=== PATIENT | female | born 1990 ===

== ENCOUNTER → 2018-01-30 | Outpatient (CLI) | END | disposition home or self-care (01) ==

== ENCOUNTER 2018-02-19 13:34 | Emergency (ER) | END 2018-02-19 16:07 | disposition home or self-care (01) ==

== ENCOUNTER 2018-03-12 11:49 | Outpatient (CLI) | END 2018-03-12 14:14 | disposition home or self-care (01) ==

== ENCOUNTER 2018-04-02 13:06 | Inpatient (IN) | END 2018-04-03 17:30 | disposition home or self-care (01) | DRG 831 ==

== ENCOUNTER 2018-05-31 13:41 | Inpatient (IN) | payer MEDICAID, OTHER ==
[~2018-05-31] VITALS: Ht 152.4 cm; Wt 78.7 kg
[~2018-05-31 13:41] MED LIST: FER325 PO; NIFE10CA PO; PROG100C5 VAG
[2018-05-31 13:47] VITALS: BP 135/82; PULSE 109; RESP 20; Ht 152.4 cm; Wt 78.7 kg
[2018-05-31] MEDS ORDERED: PREN1TAB13 PO (13:51)
[2018-05-31] MEDS ORDERED: ENOX40DI14 SC (13:52)
[2018-05-31] MEDS: TERBUTALINE 1 MG/ML INJ SC ONE ×2 (16:30→16:47)
[2018-05-31] MEDS: LACTATED RINGER'S 1,000 ML IV SCH (16:47)
[2018-05-31] MEDS ORDERED: LACTATED RINGER'S 1,000 ML IV SCH (18:28)
[2018-05-31] MEDS ORDERED: MAGNESIUM SULFATE 4 GM/100 ML 100 ML IV ONE (18:30)
[2018-05-31] MEDS: MAGNESIUM SULFATE 20 GM/500 ML 500 ML IV SCH (20:44)
[2018-05-31] MEDS: BETAMET NA PHOS/AC(6 MG/ML) 2 ML INJ SYG IM SCH (20:51)
[2018-05-31] MEDS: ENOXAPARIN 40 MG/0.4 ML SYG SC SCH (21:03)
[2018-05-31] MEDS ORDERED: ACETAMINOPHEN 325 MG TAB PO PRN (21:30)
[2018-05-31] MEDS: PROGESTERONE 100 MG CAP VAG SCH (21:53)
[2018-06-01] MEDS: MAGNESIUM SULFATE 20 GM/500 ML 500 ML IV SCH ×2 (06:56→17:12)
[2018-06-01] MEDS: LACTATED RINGER'S 1,000 ML IV SCH ×2 (08:30→10:47)
[2018-06-01] MEDS: DOCUSATE SODIUM 100 MG CAP PO SCH (09:00)
[2018-06-01] MEDS: PRENATAL VITAMIN PO SCH (09:14)
[2018-06-01] MEDS: FERROUS SULFATE (EC) 325 MG TAB PO SCH (09:14)
--- NOTE | 2018-06-01 09:49 | NSTRPT ---
NST Information Datetime Report Generated by CPN: 06/01/2018 09:48 Datetime: 05/31/2018 11:40 Test Number: 2 Reason for NST: Other Reason for NST Other: Antiphospholipid Syndrome, short Cervix Test Evaluation Patient States Movement: Present Comments: FROM JAZZY. No NST done.Cervical length 0.7cm. EFW: 1885gms. 31%, AC:31%, RYAN 12.9CM. cephalic. Recommendation is for patient to go to Hospital. spoke to Dr. Antony and his orders are to send p atient to Ob-Triage. explained to patient plan of care. Patient states understanding. Report given to Teagan GARZON. Electronically Signed By E-Signature: with User ID: [id number] Datetime: 05/28/2018 10:56 NST Information EGA: 32.1 NST Duration (Min): 27
--- NOTE | 2018-06-01 16:28 | HP ---
Date/Time of Note Date/Time of Note late entry DATE: 06/01/18 TIME: 16:22 OB - History Hx of Present Free Text/Dictation 29-year-old female 2 para 0 AB 1 at 32+ weeks gestation admitted through antepartum testing unit for very short cervix of 0.7 cm Patient has history of a butterfly rash with positive TIO and positive anti- phospholipid syndrome Currently on Lovenox Last Menstrual Period: Oct 15, 2017 Estimated Due Date: Jul 22, 2018 : 2 Para: 0 Therapeutic : 1 Care: Good Care Ultrasounds: Normal mid trimester US Obstetrical Complications: Other (Short cervix, antiphospholipid syndrome) Medical Complications: Other (Possible lupus) Past Family/Social History * Past Medical, Surgical, Family and Obstetric Histories reviewed from chart. Blood Type: O+ Rubella: immune RPR/VDRL: Negative GBS Status: Unknown HBsAG: Negative OB Admission Exam Vital Signs Vital Signs Vital Signs Date Temp Pulse Resp B/P (MAP) Pulse Ox O2 O2 Flow FiO2 Time Delivery Rate 05/31/18 98.0 109 20 135/82 Room Air 13:47 (99) Physical Exam HEENT: WNL Heart: Rhythm Normal Lungs: Clear, Equal Abdomen: WNL Extremities: Normal Reflexes: Normal Cervical Dilatation: None Effacement: 75% Station: -3 Membranes: Intact Heart Rate: 140's Accelerations: Accelerations Present Decelerations: No Decelerations Contractions on Admission: >10 Minutes Apart Date/Time Contractions Began: ? Frequency of Contractions: ? Duration: ? Last 72 hours Lab Results CBC & BMP 05/31/18 16:30 Liver Function Test 05/31/18 16:30 Alanine Aminotransferase (ALT/SGPT) 21 Albumin 4.0 Alkaline Phosphatase 156 H Aspartate Amino Transf (AST/SGOT) 35 Direct Bilirubin 0.00 Total Protein 8.3 H Magnesium Level Test 06/01/18 00:28 06/01/18 06:58 06/01/18 11:54 Magnesium Level 4.6 H 5.1 *H 5.4 *H OB Assessment/Plan Other Assessment: 32 weeks gestation Short cervix Antiphospholipid syndrome Other plan: Patient was admitted for tocolysis of uterine contractions Continue Lovenox Provide steroid TIERA BUSTILLO MD Jun 01, 2018 16:28
--- NOTE | 2018-06-01 16:29 | PN ---
Date/Time of Note Date/Time of Note DATE: 06/01/18 TIME: 16:28 OB Subjective Subjective Subjective No major complaint of uterine contractions Has uterine tightenings sporadically OB Objective Objective Objective Vital signs stable as well as general physical exam heart tones appeared reactive Electronic monitoring occasional uterine contractions seen OB Assessment/Plan Reason for admission: labor Other Assessment: 32+ weeks gestation Short cervix Other plan: Continue magnesium sulfate for 24 more hours and change to p.o. nifedipine following day TIERA BUSTILLO MD Jun 01, 2018 16:29
[2018-06-01] MEDS ORDERED: SALINE 0.65% 45 ML NAS SPRAY NASAL PRN ×2 (19:00→22:00)
[2018-06-01] MEDS: BETAMET NA PHOS/AC(6 MG/ML) 2 ML INJ SYG IM SCH (21:05)
[2018-06-01] MEDS: PROGESTERONE 100 MG CAP VAG SCH (21:12)
[2018-06-01] MEDS: ENOXAPARIN 40 MG/0.4 ML SYG SC SCH (21:34)
[2018-06-02] MEDS: LACTATED RINGER'S 1,000 ML IV SCH ×2 (00:43→13:56)
[2018-06-02] MEDS: MAGNESIUM SULFATE 20 GM/500 ML 500 ML IV SCH ×2 (04:06→13:58)
[2018-06-02] MEDS: DOCUSATE SODIUM 100 MG CAP PO SCH (09:00)
[2018-06-02] MEDS: PRENATAL VITAMIN PO SCH (09:54)
[2018-06-02] MEDS: FERROUS SULFATE (EC) 325 MG TAB PO SCH (09:55)
--- NOTE | 2018-06-02 16:17 | DS ---
Date/Time of Note Date/Time of Note DATE: 06/02/18 TIME: 16:12 Obstetrical Discharge Record Final Diagnosis Final Diagnosis: not delivered Other Final Diagnosis Short cervix and contractions Complications Tocolytics: Magnesium Sulfate, Other Condition on Discharge Physical Assessment Voiding: Yes Bowel Movement: Yes Breast: Soft, non-tender, Filling Fundus: Other () Abdomen and Incision: Abdomen is gravid fundal height is 32 heart tones are reactive Episiotomy: Not applicable Calf Tenderness: No Patient Condition: Good (Home on bed and pelvic rest) TIERA BUSTILLO MD Jun 02, 2018 16:17
--- NOTE | 2018-06-02 16:21 | DS ---
Date/Time of Note Date/Time of Note DATE: 06/02/18 TIME: 16:18 Discharge Summary Admission/Discharge Info Admit Date/Time May 31, 2018 at 18:00 Discharge Date/Time May 02, 2019 Discharge Diagnosis Short cervix contractions Antiphospholipid syndrome Patient Condition: Good Hx of Present Illness 28-year-old female at 30-33 weeks admitted with short cervix and contractions Tocolysis of contractions using magnesium sulfate Status stable on p.o. nifedipine Hospital Course Patient was tolerating the tocolytics medication well Discharged home on bed and pelvic rest until delivery Follow-up with antepartum testing twice a week Home Meds Active Scripts Nifedipine* (Procardia*) 10 Mg Capsule, 20 MG PO Q6, #120 CAP 2 Refills Prov:TIERA BUSTILLO MD 04/03/18 Progesterone,Micronized* (Progesterone*) 100 Mg Capsule, 200 MG VAG HS, #120 CAP 0 Refills Prov:TIERA BUSTILLO MD 04/03/18 Ferrous Sulfate* (Ferrous Sulfate*) 325 Mg Tabec, 325 MG PO DAILY, #120 TAB 0 Refills Prov:TIERA BUSTILLO MD 04/03/18 Reported Medications Enoxaparin Sodium* (Lovenox*) 40 Mg/0.4 Ml Syringe, 40 MG SC DAILY, SYR 05/31/18 Pnv95/Ferrous Fumarate/FA ( Vitamins Tablet) 1 Each Tablet, 1 EACH PO DAILY, TAB 05/31/18 Follow-up Plan 3 4 days in clinic Primary Care Provider Corine Angela Time spent on discharge: > 30 minutes Pending Labs Laboratory Tests Test 06/01/18 19:09 06/02/18 00:20 06/02/18 06:07 06/02/18 06:24 Magnesium 5.4 5.4 5.6 Level mg/dl (1.7-2.5) mg/dl (1.7-2.5 mg/dl (1.7-2.5 ) ) Lab Scanned REFERENCE Report LAB [id number] TIERA BUSTILLO MD Jun 02, 2018 16:21
--- NOTE | 2018-06-02 16:29 | PD.PPDC ---
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 Provider Information Physician Information 28-year-old female admitted for short cervix and contractions and had tocolysis of contractions Condition [id number] Patient Condition: [id number] Good Diet [id number] Diet: Ilvlu0a Resume Regular Diet Activity/Restrictions [id number] Activity: Eryql0a May Shower Yevmy1Tc Restrictions: Ndyjq2c No Exercising No Lifting Nothing in the Vagina No [place] [id number] Return to Work or School: Hang September 16, 2018 Follow-up Follow-up with Physician: 3, 4, Day/Days (In clinic) Return to clinic for Comment: Pelvic rest and bedrest until delivery TIERA BUSTILLO MD Jun 02, 2018 16:29
[2018-06-02] MEDS ORDERED: NIFEdipine PO ×2 (16:30→16:45)
[2018-06-02] MEDS ORDERED: NIFEdipine 10 MG CAP PO SCH (18:00)
--- NOTE | 2018-06-06 19:56 | RADRPT ---
Vent Rate: 97 bpm RR Interval: 0 msec OH Interval: 146 msec QRS Duration: 72 msec QT Interval: 352 msec QTC Interval: 447 msec P-R-T Dike: 63 - 61 - 32 degrees Normal sinus rhythm Normal ECG Electronically Signed By: Leobardo Sher [id number]
--- NOTE | 2018-06-21 16:17 | HP ---
Date/Time of Note Date/Time of Note DATE: 06/21/18 TIME: 16:13 OB - History Hx of Present Free Text/Dictation 28-year-old female 2 para 0 AB 1 at 35+ weeks gestation sent in from antepartum testing unit of [facility] because of elevated blood pressure of 150/96 Chief Complaint: Patient is denying headache blurred vision or epigastric pain Last Menstrual Period: Oct 15, 2017 Estimated Due Date: Jul 22, 2018 : 2 Para: 0 Spontaneous : 1 Care: Good Care Ultrasounds: Normal mid trimester US Obstetrical Complications: Other (Patient with a butterfly facial skin rash positive TIO positive anti-phospholipid syndrome, labor and shortness of) Medical Complications: Other (Positive TIO and butterfly facial skin rash, positive antiphospholipid syndrome, short cervix) Past Family/Social History * Past Medical, Surgical, Family and Obstetric Histories reviewed from chart. Blood Type: O+ Rubella: immune RPR/VDRL: Negative GBS Status: Unknown HBsAG: Negative OB Admission Exam Physical Exam HEENT: WNL Heart: Rhythm Normal Lungs: Clear, Equal Abdomen: WNL Extremities: Normal Reflexes: Normal Cervical Dilatation: None Effacement: 0% Station: -3 Amniotic Fluid: Clear Heart Rate: 140's Accelerations: Accelerations Present Decelerations: No Decelerations Varibility: Marked Contractions on Admission: None OB Assessment/Plan Other Assessment: Possible -induced hypertension at 35+ week Other plan: Patient was admitted for 24-hour observation urine collection for protein and creatinine clearance Steroids will be provided TIERA BUSTILLO MD Jun 21, 2018 16:17
== END 2018-06-02 19:50 | disposition home or self-care (01) | DRG 831 ==
LOC: OBT 13:41 → L-D 13:41 → OBT 18:00 → L-D 18:00
PROVIDERS: ADMIT Obstetrics & Gynecology; ATTEND Obstetrics & Gynecology
DX: O26.873 Cervical shortening, third trimester (principal); O60.03 Preterm labor without delivery, third trimester; O99.113 Other diseases of the blood and blood-forming organs and certain disorders involving the immune mechanism complicating pregnancy, third trimester; D68.61 Antiphospholipid syndrome; Z3A.32 32 weeks gestation of pregnancy
CPT/HCPCS: 36415; 76817; 76818; 80053; 81001; 83735; 84439; 84443; 85025; 85302; 85305; 85610; 85730; 86592; 86850; 86900; 86901; 93005; 96360; 96361; G0463; J0702; J1650; J3105; J3475; J7120

== ENCOUNTER 2018-06-21 12:37 | Inpatient (IN) | payer OTHER ==
[~2018-06-21] VITALS: Ht 152.4 cm; Wt 80.8 kg
[~2018-06-21 12:37] MED LIST changes: +ENOX40DI14 SC; -NIFE10CA PO; +NIFEdipine PO; +PREN1TAB13 PO
[2018-06-21 14:56] VITALS: Ht 152.4 cm; Wt 80.8 kg
[2018-06-21 14:58] VITALS: BP 136/87; PULSE 109; RESP 20
--- NOTE | 2018-06-21 15:09 | TRIAGE ---
OB Triage Datetime Report Generated by CPN: 06/21/2018 15:08 Datetime: 06/21/2018 13:09 Stage of : Antepartum Datetime: 06/21/2018 11:31 Time of Arrival: 06/21/2018 12:33 EGA: 35.4 Arrived By: Ambulatory Arrived From: Other Unit in Hospital Chief Complaint: INCREASED BLOOD PRESSURES Movement: Present Contractions: Denies/Absent Rupture of Membranes: Denies Vaginal Bleeding: None Vaginal Discharge: Denies Recent Sexual Intercouse: Denies Abdominal Trauma: Not Applicable Patient Complaints: Other Time Provider Notified: 06/21/2018 13:00 Provider Notified: DELANO Initial Plan: NST, BPP, CFM, PIH PANEL, Datetime: 06/02/2018 17:20 Labor Evaluation Frequency: 0 Monitor Mode: External Resting Tone Accident: Relaxed Heart Rate FHR Baseline Rate: 130 Monitor Mode: External US FHR Baseline Changes: No Baseline Change Variability: Moderate 6-25 bpm Accelerations: 15X15 Decelerations: None Category: Category I Datetime: 06/02/2018 16:52 Labor Evaluation Frequency: 0 Monitor Mode: External Resting Tone Accident: Relaxed Heart Rate FHR Baseline Rate: 135 Monitor Mode: External US FHR Baseline Changes: No Baseline Change Variability: Moderate 6-25 bpm Accelerations: 15X15 Decelerations: None Category: Category I Datetime: 06/02/2018 15:14 Labor Evaluation Frequency: 0 Monitor Mode: External Resting Tone Accident: Relaxed Heart Rate FHR Baseline Rate: 130 Monitor Mode: External US FHR Baseline Changes: No Baseline Change Variability: Moderate 6-25 bpm Accelerations: 15X15 Decelerations: None Category: Category I Pain Presence: None/Denies Datetime: 06/02/2018 13:36 Maternal Assessment Level of Consciousness: Fully Conscious DTR's/Clonus: DTRs 2+ Headache: Denies Blurred Vision: No Respiratory Effort: Unlabored Breath Sounds, Left: Clear and Equal Breath Sounds, Right: Clear and Equal Nausea/Vomiting: Present RUQ Epigastric Pain: Denies Labor Evaluation Frequency: 0 Monitor Mode: External Resting Tone Accident: Relaxed Heart Rate FHR Baseline Rate: 130 Monitor Mode: External US FHR Baseline Changes: No Baseline Change Variability: Moderate 6-25 bpm Accelerations: 15X15 Decelerations: None Category: Category I Datetime: 06/02/2018 13:06 Heart Rate FHR Baseline Rate: 140 Datetime: 06/02/2018 12:49 Comments: maternal pulsle, loc Datetime: 06/02/2018 09:55 Labor Evaluation Frequency: 0 Monitor Mode: External Resting Tone Accident: Relaxed Heart Rate FHR Baseline Rate: 130 Monitor Mode: External US FHR Baseline Changes: No Baseline Change Variability: Moderate 6-25 bpm Accelerations: 15X15 Decelerations: None Category: Category I Datetime: 06/02/2018 07:28 Assessment Type: Ongoing Assessment Maternal Assessment Level of Consciousness: Fully Conscious DTR's/Clonus: DTRs 2+; No Clonus Headache: Denies Blurred Vision: No Respiratory Effort: Unlabored; Regular Rhythm; Equal Expansion Breath Sounds, Left: Clear and Equal Breath Sounds, Right: Clear and Equal Nausea/Vomiting: Denies RUQ Epigastric Pain: Denies Facial Edema: None Fall Risk Assessment History of Falling: (0) No Secondary Diagnosis: (0) No Ambulatory Aid: (0) Bedrest/Nurse Assist IV Therapy: (20) Yes Gait: (0) Normal/Bedrest/Immobile Mental Status: (0) Oriented to Own Ability Fall Score: 20 Fall Risk Score Definition: No Risk: No action required Datetime: 06/02/2018 07:27 Maternal Assessment Level of Consciousness: Fully Conscious DTR's/Clonus: DTRs 2+ Headache: Denies Blurred Vision: No RUQ Epigastric Pain: Denies Facial Edema: None Datetime: 06/02/2018 07:15 Labor Evaluation Frequency: 0 Monitor Mode: External Resting Tone Accident: Relaxed Heart Rate FHR Baseline Rate: 130 Monitor Mode: External US FHR Baseline Changes: No Baseline Change Variability: Moderate 6-25 bpm Accelerations: 15X15 Decelerations: None Category: Category I Pain Presence: None/Denies Datetime: 06/02/2018 07:00 Maternal Assessment Level of Consciousness: Fully Conscious Labor Evaluation Frequency: NONE Monitor Mode: External Quality: Mild Pattern: Normal: <= 5 Contractions in 10 Minutes Resting Tone Accident: Relaxed Heart Rate FHR Baseline Rate: 130 Monitor Mode: External US FHR Baseline Changes: No Baseline Change Variability: Moderate 6-25 bpm Accelerations: 10X10 Decelerations: None Category: Category I Datetime: 06/02/2018 06:01 Labor Evaluation Frequency: 1/HR Monitor Mode: External Duration (sec)2399: 100 Quality: Mild Pattern: Normal: <= 5 Contractions in 10 Minutes Resting Tone Accident: Relaxed Heart Rate FHR Baseline Rate: 125 Monitor Mode: External US FHR Baseline Changes: No Baseline Change Variability: Moderate 6-25 bpm Accelerations: 15X15 Decelerations: None Category: Category I Datetime: 06/02/2018 05:16 Labor Evaluation Frequency: 1/HR WITH IRRIT Monitor Mode: External Duration (sec)2399: 120 Quality: Mild Pattern: Normal: <= 5 Contractions in 10 Minutes Resting Tone Accident: Relaxed Heart Rate FHR Baseline Rate: 135 Monitor Mode: External US FHR Baseline Changes: No Baseline Change Variability: Moderate 6-25 bpm Accelerations: 15X15 Decelerations: None Category: Category I Datetime: 06/02/2018 04:01 DTR's/Clonus: DTRs 2+ Respiratory Effort: Unlabored Breath Sounds, Left: Clear and Equal Breath Sounds, Right: Clear and Equal Labor Evaluation Frequency: 2/HR Monitor Mode: External Duration (sec)2399: 80-100 Quality: Mild Pattern: Normal: <= 5 Contractions in 10 Minutes Resting Tone Accident: Relaxed Heart Rate FHR Baseline Rate: 120 Monitor Mode: External US FHR Baseline Changes: No Baseline Change Variability: Moderate 6-25 bpm Accelerations: 15X15 Decelerations: None Category: Category I Datetime: 06/02/2018 03:10 Labor Evaluation Frequency: NONE Monitor Mode: External Pattern: Normal: <= 5 Contractions in 10 Minutes Resting Tone Accident: Relaxed Heart Rate FHR Baseline Rate: 130 Monitor Mode: External US FHR Baseline Changes: No Baseline Change Variability: Moderate 6-25 bpm Accelerations: 15X15 Decelerations: None Category: Category I Datetime: 06/02/2018 03:00 Pain Presence: None/Denies Datetime: 06/02/2018 02:01 DTR's/Clonus: DTRs 2+ Labor Evaluation Frequency: 1/HR Monitor Mode: External Duration (sec)2399: 90 Quality: Mild Pattern: Normal: <= 5 Contractions in 10 Minutes Resting Tone Accident: Relaxed Heart Rate FHR Baseline Rate: 130 Monitor Mode: External US FHR Baseline Changes: No Baseline Change Variability: Moderate 6-25 bpm Accelerations: 15X15 Decelerations: None Category: Category I Datetime: 06/02/2018 00:59 Labor Evaluation Frequency: NONE Monitor Mode: External Pattern: Normal: <= 5 Contractions in 10 Minutes Resting Tone Accident: Relaxed Heart Rate FHR Baseline Rate: 135 Monitor Mode: External US FHR Baseline Changes: No Baseline Change Variability: Moderate 6-25 bpm Accelerations: 15X15 Decelerations: None Category: Category I Datetime: 06/02/2018 00:01 Maternal Assessment Level of Consciousness: Fully Conscious DTR's/Clonus: DTRs 2+ Respiratory Effort: Unlabored Breath Sounds, Left: Clear and Equal Breath Sounds, Right: Clear and Equal Labor Evaluation Frequency: 1/HR Monitor Mode: External Duration (sec)2399: 50 Quality: Mild Pattern: Normal: <= 5 Contractions in 10 Minutes Resting Tone Accident: Relaxed Heart Rate FHR Baseline Rate: 130 Monitor Mode: External US FHR Baseline Changes: No Baseline Change Variability: Moderate 6-25 bpm Accelerations: 15X15 Decelerations: None Category: Category I Pain Presence: None/Denies Datetime: 06/01/2018 23:00 Labor Evaluation Frequency: NONE Monitor Mode: External Pattern: Normal: <= 5 Contractions in 10 Minutes Resting Tone Accident: Relaxed Heart Rate FHR Baseline Rate: 125 Monitor Mode: External US FHR Baseline Changes: No Baseline Change Variability: Moderate 6-25 bpm Accelerations: 15X15 Decelerations: None Category: Category I Comments: FHR TRACING INTERMITTENTLY WHILE PT SLEEPING IN LEFT LATERAL. Datetime: 06/01/2018 22:00 Assessment Type: Ongoing Assessment Maternal Assessment Level of Consciousness: Fully Conscious DTR's/Clonus: DTRs 2+; No Clonus DTR's/Clonus: DTRs 2+ Headache: Denies Blurred Vision: No Respiratory Effort: Unlabored; Regular Rhythm; Equal Expansion Breath Sounds, Left: Clear and Equal Breath Sounds, Right: Clear and Equal Nausea/Vomiting: Denies RUQ Epigastric Pain: Denies Lower Extremities Edema: None Degree: None Upper Extremities Edema: None Degree: None Facial Edema: None Fall Risk Assessment History of Falling: (0) No Secondary Diagnosis: (0) No Ambulatory Aid: (0) Bedrest/Nurse Assist IV Therapy: (20) Yes Gait: (0) Normal/Bedrest/Immobile Mental Status: (0) Oriented to Own Ability Fall Score: 20 Fall Risk Score Definition: No Risk: No action required Labor Evaluation Frequency: 1/HR Monitor Mode: External Duration (sec)2399: 120 Quality: Mild Pattern: Normal: <= 5 Contractions in 10 Minutes Resting Tone Accident: Relaxed Heart Rate FHR Baseline Rate: 135 Monitor Mode: External US FHR Baseline Changes: No Baseline Change Variability: Moderate 6-25 bpm Accelerations: 15X15 Decelerations: None Category: Category I Pain Presence: None/Denies Datetime: 06/01/2018 20:59 Labor Evaluation Frequency: NONE Monitor Mode: External Pattern: Normal: <= 5 Contractions in 10 Minutes Resting Tone Accident: Relaxed Heart Rate FHR Baseline Rate: 130 Monitor Mode: External US FHR Baseline Changes: No Baseline Change Variability: Moderate 6-25 bpm Accelerations: 15X15 Decelerations: None Category: Category I Datetime: 06/01/2018 20:06 Labor Evaluation Frequency: 1/HR Monitor Mode: External Duration (sec)2399: 110 Quality: Mild Pattern: Normal: <= 5 Contractions in 10 Minutes Resting Tone Accident: Relaxed Heart Rate FHR Baseline Rate: 135 Monitor Mode: External US FHR Baseline Changes: No Baseline Change Variability: Moderate 6-25 bpm Accelerations: 15X15 Decelerations: None Category: Category I Vaginal Exam Membrane Status: Intact Datetime: 06/01/2018 20:00 Maternal Assessment Level of Consciousness: Fully Conscious DTR's/Clonus: DTRs 2+ Headache: Denies Blurred Vision: No Respiratory Effort: Unlabored Breath Sounds, Left: Clear and Equal Breath Sounds, Right: Clear and Equal Nausea/Vomiting: Denies RUQ Epigastric Pain: Denies Facial Edema: None Pain Presence: None/Denies Datetime: 06/01/2018 19:00 Monitor Mode: External Resting Tone Accident: Relaxed Heart Rate FHR Baseline Rate: 135 Monitor Mode: External US FHR Baseline Changes: No Baseline Change Variability: Moderate 6-25 bpm Accelerations: 15X15 Decelerations: None Category: Category I Pain Presence: None/Denies Datetime: 06/01/2018 18:52 Comments: FHR US difficult to monitor due to maternal movement Datetime: 06/01/2018 18:00 DTR's/Clonus: DTRs 2+ Monitor Mode: External Resting Tone Accident: Relaxed Heart Rate FHR Baseline Rate: 140 Monitor Mode: External US FHR Baseline Changes: No Baseline Change Variability: Moderate 6-25 bpm Accelerations: 15X15 Decelerations: None Category: Category I Pain Presence: None/Denies Datetime: 06/01/2018 17:00 DTR's/Clonus: DTRs 2+ Breath Sounds, Left: Clear and Equal Breath Sounds, Right: Clear and Equal Monitor Mode: External Resting Tone Accident: Relaxed Heart Rate FHR Baseline Rate: 135 Monitor Mode: External US FHR Baseline Changes: No Baseline Change Variability: Moderate 6-25 bpm Accelerations: 15X15 Decelerations: None Category: Category I Pain Presence: None/Denies Datetime: 06/01/2018 16:00 DTR's/Clonus: DTRs 2+ Breath Sounds, Left: Clear and Equal Breath Sounds, Right: Clear and Equal Temperature Route: Oral Monitor Mode: External Resting Tone Accident: Relaxed Heart Rate FHR Baseline Rate: 135 Monitor Mode: External US FHR Baseline Changes: No Baseline Change Variability: Moderate 6-25 bpm Accelerations: 15X15 Decelerations: None Category: Category I Pain Presence: None/Denies Datetime: 06/01/2018 15:00 Monitor Mode: External Resting Tone Accident: Relaxed Heart Rate FHR Baseline Rate: 135 Monitor Mode: External US FHR Baseline Changes: No Baseline Change Variability: Moderate 6-25 bpm Accelerations: 15X15 Decelerations: None Category: Category I Pain Presence: None/Denies Datetime: 06/01/2018 14:00 DTR's/Clonus: DTRs 2+ Monitor Mode: External Resting Tone Accident: Relaxed Heart Rate FHR Baseline Rate: 130 Monitor Mode: External US FHR Baseline Changes: No Baseline Change Variability: Moderate 6-25 bpm Accelerations: 15X15 Decelerations: None Category: Category I Pain Presence: None/Denies Datetime: 06/01/2018 13:00 Labor Evaluation Frequency: x1 UC noted this hour Monitor Mode: External Duration (sec)2399: 60 Quality: Mild Pattern: Normal: <= 5 Contractions in 10 Minutes Resting Tone Accident: Relaxed Heart Rate FHR Baseline Rate: 130 Monitor Mode: External US FHR Baseline Changes: No Baseline Change Variability: Minimal - Undetectable to <=5 bpm Accelerations: 15X15 Decelerations: None Comments: Appropriate for [place] Pain Presence: None/Denies Datetime: 06/01/2018 12:00 DTR's/Clonus: DTRs 2+ Breath Sounds, Left: Clear and Equal Breath Sounds, Right: Clear and Equal Labor Evaluation Frequency: x2 UC noted this hour Monitor Mode: External Quality: Mild Pattern: Normal: <= 5 Contractions in 10 Minutes Resting Tone Accident: Relaxed Heart Rate FHR Baseline Rate: 135 Monitor Mode: External US FHR Baseline Changes: No Baseline Change Variability: Moderate 6-25 bpm Accelerations: 15X15 Decelerations: None Category: Category I Pain Presence: None/Denies Datetime: 06/01/2018 11:00 Labor Evaluation Frequency: x2 UC noted this hour Monitor Mode: External Quality: Mild Pattern: Normal: <= 5 Contractions in 10 Minutes Resting Tone Accident: Relaxed Monitor Mode: External US FHR Baseline Changes: No Baseline Change Variability: Minimal - Undetectable to <=5 bpm Accelerations: 15X15 Decelerations: None Category: Category I Comments: Appropriate for [place] Pain Presence: None/Denies Datetime: 06/01/2018 10:00 DTR's/Clonus: DTRs 2+ Labor Evaluation Frequency: x2 UC noted this hour Monitor Mode: External Duration (sec)2399: 50 Quality: Mild Pattern: Normal: <= 5 Contractions in 10 Minutes Resting Tone Accident: Relaxed Contraction Comments: Uterine irritability noted Heart Rate FHR Baseline Rate: 125 Monitor Mode: External US FHR Baseline Changes: No Baseline Change Variability: Moderate 6-25 bpm Accelerations: 15X15 Decelerations: None Category: Category I Pain Presence: None/Denies Datetime: 06/01/2018 09:00 Monitor Mode: External Resting Tone Accident: Relaxed Heart Rate FHR Baseline Rate: 130 Monitor Mode: External US FHR Baseline Changes: No Baseline Change Variability: Moderate 6-25 bpm Accelerations: 15X15 Decelerations: None Category: Category I Pain Presence: None/Denies Datetime: 06/01/2018 08:03 Comments: US detecting maternal HR due to pt's side lying position. Pt informed RN she was on her b ack most of the night and said she needs relief from being on her back. RN informed pt OK for pt to b e side lying now although it is difficult to find FHR but when pt is ready to be on back, RN will kathy djust for US to detect FHR. Pt verbalized understanding. Datetime: 06/01/2018 07:45 Assessment Type: Ongoing Assessment Maternal Assessment Level of Consciousness: Fully Conscious DTR's/Clonus: DTRs 2+; No Clonus Headache: Denies Blurred Vision: No Respiratory Effort: Unlabored; Regular Rhythm; Equal Expansion Breath Sounds, Left: Clear and Equal Breath Sounds, Right: Clear and Equal Nausea/Vomiting: Denies RUQ Epigastric Pain: Denies Lower Extremities Edema: Bilateral Lower Extremities Degree: Trace Upper Extremities Edema: None Degree: None Facial Edema: None Fall Risk Assessment History of Falling: (0) No Secondary Diagnosis: (0) No Ambulatory Aid: (0) Bedrest/Nurse Assist IV Therapy: (20) Yes Gait: (0) Normal/Bedrest/Immobile Mental Status: (0) Oriented to Own Ability Fall Score: 20 Fall Risk Score Definition: No Risk: No action required Monitor Mode: External Resting Tone Accident: Relaxed Heart Rate FHR Baseline Rate: 125 Monitor Mode: External US FHR Baseline Changes: No Baseline Change Variability: Minimal - Undetectable to <=5 bpm Accelerations: 15X15 Decelerations: None Comments: Appropriate for [place] Pain Presence: None/Denies Datetime: 06/01/2018 06:58 Labor Evaluation Frequency: 1/HR Monitor Mode: External Duration (sec)2399: 70 Quality: Mild Pattern: Normal: <= 5 Contractions in 10 Minutes Resting Tone Accident: Relaxed Heart Rate FHR Baseline Rate: 130 Monitor Mode: External US FHR Baseline Changes: No Baseline Change Variability: Moderate 6-25 bpm Accelerations: None Decelerations: None Category: Category I Datetime: 06/01/2018 06:00 Labor Evaluation Frequency: 1/HR Monitor Mode: External Duration (sec)2399: 45 Pattern: Normal: <= 5 Contractions in 10 Minutes Resting Tone Accident: Relaxed Heart Rate FHR Baseline Rate: 130 Monitor Mode: External US FHR Baseline Changes: No Baseline Change Variability: Moderate 6-25 bpm Accelerations: 15X15 Decelerations: None Category: Category I Datetime: 06/01/2018 05:00 Labor Evaluation Frequency: NONE Monitor Mode: External Pattern: Normal: <= 5 Contractions in 10 Minutes Resting Tone Accident: Relaxed Heart Rate FHR Baseline Rate: 130 Monitor Mode: External US FHR Baseline Changes: No Baseline Change Variability: Moderate 6-25 bpm Accelerations: 15X15 Decelerations: None Category: Category I Datetime: 06/01/2018 04:12 Maternal Assessment Level of Consciousness: Fully Conscious DTR's/Clonus: DTRs 2+ Respiratory Effort: Unlabored Breath Sounds, Left: Clear and Equal Breath Sounds, Right: Clear and Equal Labor Evaluation Frequency: NONE Monitor Mode: External Pattern: Normal: <= 5 Contractions in 10 Minutes Resting Tone Accident: Relaxed Heart Rate FHR Baseline Rate: 125 Monitor Mode: External US FHR Baseline Changes: No Baseline Change Variability: Moderate 6-25 bpm Accelerations: 15X15 Decelerations: None Category: Category I Datetime: 06/01/2018 03:00 Labor Evaluation Frequency: none Monitor Mode: External Pattern: Normal: <= 5 Contractions in 10 Minutes Resting Tone Accident: Relaxed Comments: FHR transducer displaced. Datetime: 06/01/2018 02:10 DTR's/Clonus: DTRs 2+ Monitor Mode: External US Datetime: 06/01/2018 02:00 Labor Evaluation Frequency: NONE Monitor Mode: External Pattern: Normal: <= 5 Contractions in 10 Minutes Resting Tone Accident: Relaxed Heart Rate FHR Baseline Rate: 125 Monitor Mode: External US FHR Baseline Changes: No Baseline Change Variability: Moderate 6-25 bpm Accelerations: 10X10 Decelerations: None Category: Category I Datetime: 06/01/2018 01:00 Labor Evaluation Frequency: 1/HR Monitor Mode: External Duration (sec)2399: 120 Quality: Mild Pattern: Normal: <= 5 Contractions in 10 Minutes Resting Tone Accident: Relaxed Heart Rate FHR Baseline Rate: 130 Monitor Mode: External US FHR Baseline Changes: No Baseline Change Variability: Moderate 6-25 bpm Accelerations: 15X15 Decelerations: None Category: Category I Datetime: 06/01/2018 00:00 Maternal Assessment Level of Consciousness: Fully Conscious DTR's/Clonus: DTRs 2+ Headache: Denies Blurred Vision: No Respiratory Effort: Unlabored Breath Sounds, Left: Clear and Equal Breath Sounds, Right: Clear and Equal Nausea/Vomiting: Denies RUQ Epigastric Pain: Denies Labor Evaluation Frequency: NONE Monitor Mode: External Pattern: Normal: <= 5 Contractions in 10 Minutes Resting Tone Accident: Relaxed Heart Rate FHR Baseline Rate: 140 Monitor Mode: External US FHR Baseline Changes: No Baseline Change Variability: Moderate 6-25 bpm Accelerations: 15X15 Decelerations: None Category: Category I Pain Presence: None/Denies Datetime: 05/31/2018 23:00 Labor Evaluation Frequency: 1/HR Monitor Mode: External Duration (sec)2399: 70 Quality: Mild Pattern: Normal: <= 5 Contractions in 10 Minutes Resting Tone Accident: Relaxed Heart Rate FHR Baseline Rate: 145 Monitor Mode: External US FHR Baseline Changes: No Baseline Change Variability: Moderate 6-25 bpm Accelerations: 15X15 Decelerations: None Category: Category I Datetime: 05/31/2018 22:00 Maternal Assessment Level of Consciousness: Fully Conscious DTR's/Clonus: DTRs 2+ Labor Evaluation Frequency: NONE Monitor Mode: External Quality: Mild Pattern: Normal: <= 5 Contractions in 10 Minutes Resting Tone Accident: Relaxed Heart Rate FHR Baseline Rate: 145 Monitor Mode: External US FHR Baseline Changes: No Baseline Change Variability: Moderate 6-25 bpm Accelerations: 15X15 Decelerations: None Category: Category I Datetime: 05/31/2018 21:00 Labor Evaluation Frequency: 2/HR Monitor Mode: External Duration (sec)2399: 50-60 Quality: Mild Pattern: Normal: <= 5 Contractions in 10 Minutes Resting Tone Accident: Relaxed Heart Rate FHR Baseline Rate: 150 Monitor Mode: External US FHR Baseline Changes: No Baseline Change Variability: Moderate 6-25 bpm Accelerations: 15X15 Decelerations: None Category: Category I Datetime: 05/31/2018 20:00 Maternal Assessment Level of Consciousness: Fully Conscious DTR's/Clonus: DTRs 2+ Headache: Frontal Blurred Vision: No Respiratory Effort: Unlabored Breath Sounds, Left: Clear and Equal Breath Sounds, Right: Clear and Equal Nausea/Vomiting: Denies RUQ Epigastric Pain: Denies Facial Edema: None Labor Evaluation Frequency: NONE Monitor Mode: External Quality: Mild Pattern: Normal: <= 5 Contractions in 10 Minutes Resting Tone Accident: Relaxed Heart Rate FHR Baseline Rate: 150 Monitor Mode: External US FHR Baseline Changes: No Baseline Change Variability: Moderate 6-25 bpm Accelerations: 15X15 Decelerations: None Category: Category I Pain Presence: Constant Pain Type: Ache Pain Location: Head Pain Assessment Comments: PT GIVEN REASSSURANCE. WILL GET ORDER FOR TYLENOL . Vaginal Exam Membrane Status: Intact Datetime: 05/31/2018 19:30 Assessment Type: Admission Assessment Maternal Assessment Level of Consciousness: Fully Conscious DTR's/Clonus: DTRs 2+; No Clonus Headache: Frontal Blurred Vision: No Respiratory Effort: Unlabored; Regular Rhythm; Equal Expansion Breath Sounds, Left: Clear and Equal Breath Sounds, Right: Clear and Equal Nausea/Vomiting: Denies RUQ Epigastric Pain: Denies Lower Extremities Edema: None Degree: None Upper Extremities Edema: None Degree: None Facial Edema: None Fall Risk Assessment History of Falling: (0) No Secondary Diagnosis: (0) No Ambulatory Aid: (0) Bedrest/Nurse Assist IV Therapy: (20) Yes Gait: (0) Normal/Bedrest/Immobile Mental Status: (0) Oriented to Own Ability Fall Score: 20 Fall Risk Score Definition: No Risk: No action required Labor Evaluation Frequency: NONE Monitor Mode: External Quality: Mild Pattern: Normal: <= 5 Contractions in 10 Minutes Resting Tone Accident: Relaxed Heart Rate FHR Baseline Rate: 150 Monitor Mode: External US FHR Baseline Changes: No Baseline Change Variability: Moderate 6-25 bpm Accelerations: 15X15 Decelerations: None Category: Category I Datetime: 05/31/2018 18:54 Maternal Assessment Level of Consciousness: Fully Conscious DTR's/Clonus: DTRs 2+; No Clonus Headache: Temporal Blurred Vision: No Respiratory Effort: Unlabored Breath Sounds, Left: Clear and Equal Breath Sounds, Right: Clear and Equal Nausea/Vomiting: Denies RUQ Epigastric Pain: Denies Facial Edema: None Datetime: 05/31/2018 18:01 Stage of : Antepartum Datetime: 05/31/2018 18:00 Monitor Mode: External Heart Rate FHR Baseline Rate: 150 Monitor Mode: External US FHR Baseline Changes: No Baseline Change Variability: Moderate 6-25 bpm Accelerations: 10X10 Decelerations: None Category: Category I Pain Assessment Pain Scale: 0 Pain Presence: None/Denies Pain Type: N/A Pain Goal: 0 Datetime: 05/31/2018 17:30 Labor Evaluation Frequency: X2 Monitor Mode: External Duration (sec)2399: 60 Quality: Mild Pattern: Normal: <= 5 Contractions in 10 Minutes Resting Tone Accident: Relaxed Heart Rate FHR Baseline Rate: 150 Monitor Mode: External US FHR Baseline Changes: No Baseline Change Variability: Moderate 6-25 bpm Accelerations: 15X15 Decelerations: None Category: Category I Pain Assessment Pain Scale: 0 Pain Presence: None/Denies Pain Type: N/A Pain Goal: 0 Vaginal Exam Membrane Status: Intact Datetime: 05/31/2018 16:30 Labor Evaluation Frequency: X1 Monitor Mode: External Duration (sec)2399: 60 Quality: Mild Pattern: Normal: <= 5 Contractions in 10 Minutes Resting Tone Accident: Relaxed Heart Rate FHR Baseline Rate: 145 Monitor Mode: External US FHR Baseline Changes: No Baseline Change Variability: Moderate 6-25 bpm Accelerations: 15X15 Decelerations: None Category: Category I Pain Assessment Pain Scale: 0 Pain Presence: None/Denies Pain Type: N/A Pain Goal: 0 Datetime: 05/31/2018 15:30 Labor Evaluation Frequency: X1 Monitor Mode: External Duration (sec)2399: 80 Quality: Mild Pattern: Normal: <= 5 Contractions in 10 Minutes Resting Tone Accident: Relaxed Heart Rate FHR Baseline Rate: 140 Monitor Mode: External US FHR Baseline Changes: No Baseline Change Variability: Moderate 6-25 bpm Accelerations: 15X15 Decelerations: None Category: Category I Pain Assessment Pain Scale: 0 Pain Presence: None/Denies Pain Type: N/A Pain Goal: 0 Datetime: 05/31/2018 14:30 Labor Evaluation Frequency: X1 Monitor Mode: External Duration (sec)2399: 100 Quality: Mild Pattern: Normal: <= 5 Contractions in 10 Minutes Resting Tone Accident: Relaxed Heart Rate FHR Baseline Rate: 140 Monitor Mode: External US FHR Baseline Changes: No Baseline Change Variability: Moderate 6-25 bpm Accelerations: 15X15 Decelerations: Variable Category: Category II Pain Assessment Pain Scale: 0 Pain Presence: None/Denies Pain Type: N/A Pain Goal: 0 Datetime: 05/31/2018 13:37 Stage of : OB Triage Time of Arrival: 05/31/2018 13:36 EGA: 32.4 Arrived By: Ambulatory Arrived From: Dr. Feliciano Movement: Present Contractions: Denies/Absent Rupture of Membranes: Denies Vaginal Bleeding: None Vaginal Discharge: Denies Recent Sexual Intercouse: Denies Abdominal Trauma: Not Applicable Patient Complaints: Other Time Provider Notified: 05/31/2018 16:14 Provider Notified: DR. WICK Initial Plan: EFM Maternal Assessment Level of Consciousness: Fully Conscious DTR's/Clonus: DTRs 2+; No Clonus Headache: Denies Blurred Vision: No Respiratory Effort: Unlabored; Regular Rhythm; Equal Expansion Nausea/Vomiting: Denies RUQ Epigastric Pain: Denies Lower Extremities Edema: None Degree: None Upper Extremities Edema: None Degree: None Facial Edema: None Temperature Route: Axillary Fall Risk Assessment History of Falling: (0) No Secondary Diagnosis: (0) No Ambulatory Aid: (0) Bedrest/Nurse Assist IV Therapy: (0) No Gait: (0) Normal/Bedrest/Immobile Mental Status: (0) Oriented to Own Ability Fall Score: 0 Fall Risk Score Definition: No Risk: No action required Datetime: 04/03/2018 16:45 Pain Assessment Pain Scale: 0 Pain Presence: None/Denies Pain Type: N/A Datetime: 04/03/2018 16:43 Maternal Assessment Level of Consciousness: Fully Conscious Headache: Denies Blurred Vision: No Nausea/Vomiting: Denies RUQ Epigastric Pain: Denies Labor Evaluation Frequency: 0 Monitor Mode: External Pattern: Normal: <= 5 Contractions in 10 Minutes Resting Tone Accident: Relaxed Heart Rate FHR Baseline Rate: 140 Comments: FHTs Pain Assessment Pain Scale: 0 Pain Presence: None/Denies Pain Type: N/A Datetime: 04/03/2018 16:01 Maternal Assessment Level of Consciousness: Fully Conscious Headache: Denies Blurred Vision: No Nausea/Vomiting: Denies RUQ Epigastric Pain: Denies Facial Edema: None Labor Evaluation Frequency: x1 Monitor Mode: External Duration (sec)2399: 50 Quality: Mild Pattern: Normal: <= 5 Contractions in 10 Minutes Resting Tone Accident: Relaxed Pain Assessment Pain Scale: 0 Pain Presence: None/Denies Pain Type: N/A Datetime: 04/03/2018 15:36 Decelerations: Prolonged Datetime: 04/03/2018 15:01 Maternal Assessment Level of Consciousness: Fully Conscious Headache: Denies Blurred Vision: No Nausea/Vomiting: Denies RUQ Epigastric Pain: Denies Facial Edema: None Labor Evaluation Frequency: 0 Monitor Mode: External Pattern: Normal: <= 5 Contractions in 10 Minutes Resting Tone Accident: Relaxed Pain Assessment Pain Scale: 0 Pain Presence: None/Denies Pain Type: N/A Datetime: 04/03/2018 14:12 Labor Evaluation Frequency: 0 Monitor Mode: External Pattern: Normal: <= 5 Contractions in 10 Minutes Resting Tone Accident: Relaxed Datetime: 04/03/2018 13:00 Maternal Assessment Level of Consciousness: Fully Conscious Headache: Denies Blurred Vision: No Nausea/Vomiting: Denies RUQ Epigastric Pain: Denies Labor Evaluation Frequency: 0 Monitor Mode: External Pattern: Normal: <= 5 Contractions in 10 Minutes Resting Tone Accident: Relaxed Pain Assessment Pain Scale: 0 Pain Presence: None/Denies Pain Type: N/A Datetime: 04/03/2018 12:01 Labor Evaluation Frequency: 0 Monitor Mode: External Pattern: Normal: <= 5 Contractions in 10 Minutes Resting Tone Accident: Relaxed Datetime: 04/03/2018 11:54 Heart Rate FHR Baseline Rate: 145 Monitor Mode: External US Comments: PT REPORTS THAT HER BABY ISN'T MOVING MUCH NORMAL; FHTs AUSCULTATED. Datetime: 04/03/2018 11:51 Maternal Assessment Level of Consciousness: Fully Conscious DTR's/Clonus: DTRs 1+; No Clonus Headache: Denies Blurred Vision: No Breath Sounds, Left: Clear and Equal Breath Sounds, Right: Clear and Equal Nausea/Vomiting: Denies RUQ Epigastric Pain: Denies Datetime: 04/03/2018 11:01 Maternal Assessment Level of Consciousness: Fully Conscious Headache: Denies Blurred Vision: No Nausea/Vomiting: Denies RUQ Epigastric Pain: Denies Labor Evaluation Frequency: x2 Monitor Mode: External Duration (sec)2399: 50 Quality: Mild Pattern: Normal: <= 5 Contractions in 10 Minutes Resting Tone Accident: Relaxed Datetime: 04/03/2018 10:08 Maternal Assessment Level of Consciousness: Fully Conscious DTR's/Clonus: DTRs 1+; No Clonus Headache: Denies Blurred Vision: No Nausea/Vomiting: Denies RUQ Epigastric Pain: Denies Facial Edema: None Datetime: 04/03/2018 10:03 Labor Evaluation Frequency: 0 Monitor Mode: External Pattern: Normal: <= 5 Contractions in 10 Minutes Resting Tone Accident: Relaxed Datetime: 04/03/2018 09:01 Labor Evaluation Frequency: 0 Monitor Mode: External Pattern: Normal: <= 5 Contractions in 10 Minutes Resting Tone Accident: Relaxed Datetime: 04/03/2018 08:04 Stage of : Antepartum Maternal Assessment Level of Consciousness: Fully Conscious DTR's/Clonus: DTRs 1+ Headache: Denies Breath Sounds, Left: Clear and Equal Breath Sounds, Right: Clear and Equal Nausea/Vomiting: Denies RUQ Epigastric Pain: Denies Temperature Route: Oral Pain Assessment Pain Scale: 0 Pain Presence: None/Denies Pain Type: N/A Datetime: 04/03/2018 08:01 Labor Evaluation Frequency: 0 Pattern: Normal: <= 5 Contractions in 10 Minutes Resting Tone Accident: Relaxed Datetime: 04/03/2018 08:00 Stage of : Antepartum Labor Evaluation Frequency: 0 Monitor Mode: External Resting Tone Accident: Relaxed Heart Rate FHR Baseline Rate: 150 Monitor Mode: External US Datetime: 04/03/2018 07:01 Labor Evaluation Frequency: 0 Monitor Mode: External Pattern: Normal: <= 5 Contractions in 10 Minutes Resting Tone Accident: Relaxed Datetime: 04/03/2018 06:00 Labor Evaluation Frequency: 0 Monitor Mode: External Resting Tone Accident: Relaxed Datetime: 04/03/2018 05:04 Labor Evaluation Frequency: 0 Monitor Mode: External Resting Tone Accident: Relaxed Pain Presence: None/Denies Datetime: 04/03/2018 04:00 Labor Evaluation Frequency: 0 Monitor Mode: External Duration (sec)2399: DENIES Resting Tone Accident: Relaxed Datetime: 04/03/2018 01:00 Labor Evaluation Frequency: 0 Monitor Mode: External Duration (sec)2399: DENIES Resting Tone Accident: Relaxed Datetime: 04/03/2018 00:13 Heart Rate FHR Baseline Rate: 145 Comments: fht listened for 2 minutes. Datetime: 04/03/2018 00:00 Labor Evaluation Frequency: 0 Monitor Mode: External Duration (sec)2399: denies Resting Tone Accident: Relaxed Pain Presence: None/Denies Datetime: 04/02/2018 23:00 Labor Evaluation Frequency: 0 Monitor Mode: External Resting Tone Accident: Relaxed Datetime: 04/02/2018 22:00 Labor Evaluation Frequency: 0 Monitor Mode: External Duration (sec)2399: DENIES. Resting Tone Accident: Relaxed Pain Presence: None/Denies Datetime: 04/02/2018 21:00 Pain Presence: None/Denies Datetime: 04/02/2018 20:00 Labor Evaluation Frequency: 0 Monitor Mode: External Duration (sec)2399: DENIES Resting Tone Accident: Relaxed Pain Presence: None/Denies Datetime: 04/02/2018 19:04 Stage of : Antepartum Assessment Type: Ongoing Assessment Maternal Assessment Level of Consciousness: Fully Conscious DTR's/Clonus: DTRs 2+; No Clonus Headache: Denies Blurred Vision: No Respiratory Effort: Unlabored; Regular Rhythm; Equal Expansion Breath Sounds, Left: Clear and Equal Breath Sounds, Right: Clear and Equal Nausea/Vomiting: Denies RUQ Epigastric Pain: Denies Lower Extremities Edema: None Degree: None Upper Extremities Edema: None Degree: None Facial Edema: None Temperature Route: Oral Fall Risk Assessment History of Falling: (0) No Secondary Diagnosis: (0) No Ambulatory Aid: (0) Bedrest/Nurse Assist IV Therapy: (0) No Gait: (0) Normal/Bedrest/Immobile Mental Status: (0) Oriented to Own Ability Fall Score: 0 Fall Risk Score Definition: No Risk: No action required Pain Presence: None/Denies Datetime: 04/02/2018 19:00 Labor Evaluation Frequency: 0 Monitor Mode: External Resting Tone Accident: Relaxed Datetime: 04/02/2018 18:12 Labor Evaluation Frequency: 0 Monitor Mode: External Resting Tone Accident: Relaxed Pain Presence: None/Denies Datetime: 04/02/2018 16:03 Labor Evaluation Frequency: 0 Monitor Mode: External Resting Tone Accident: Relaxed Datetime: 04/02/2018 15:15 Labor Evaluation Frequency: 0 Monitor Mode: External Resting Tone Accident: Relaxed Heart Rate FHR Baseline Rate: 150 Monitor Mode: External US FHR Baseline Changes: No Baseline Change Variability: Moderate 6-25 bpm Accelerations: 10X10 Decelerations: None Category: Category I Datetime: 03/12/2018 13:13 EGA: 21.1 Arrived By: Wheelchair Arrived From: Dr. Office Datetime: 03/12/2018 13:00 Stage of : OB Triage Maternal Assessment Level of Consciousness: Fully Conscious Labor Evaluation Frequency: 0 Monitor Mode: External Resting Tone Accident: Relaxed Monitor Mode: Doppler (Annotations: FH'S DOPPLED IN THE 140'S) Pain Assessment Pain Scale: 0 Pain Goal: 3 Vaginal Exam Membrane Status: Intact Vaginal Bleeding: None Datetime: 03/12/2018 12:58 Fall Score: 0 Fall Risk Score Definition: No Risk: No action required
[2018-06-21] MEDS ORDERED: BETAMET NA PHOS/AC(6 MG/ML) 2 ML INJ SYG IM SCH (17:00)
--- NOTE | 2018-06-21 17:18 | NSTRPT ---
NST Information Datetime Report Generated by CPN: 06/21/2018 17:18 Datetime: 06/21/2018 10:09 NST Information EGA: 35.4 Test Number: 7 Time on Monitor: 06/21/2018 10:40 Time off Monitor: 06/21/2018 11:05 NST Duration (Min): 25 Reason for NST: Other Reason for NST Other: Antiphospholipid Syndromae Test and Monitor Explained: Monitor Explained; Test Explained; Verbalized Understanding Pulse: 111 Resp: 20 SBP: 154 DBP: 92 Test Evaluation NST Interventions: None Patient States Movement: Present Contraction Frequency: NONE FHR Baseline : 150 Variability: Moderate 6-25bpm Accelerations: 15X15 Decelerations: None FHR Category: Category I NST Results: Reactive Provider Notified: Dr. Barron Perinatologist and Dr. Antony. Comments: PT TO U/S-RYAN 11.8 CM, CEPHALIC. Dr. Barron Perinatologist recommends pt to the [facility] labs. Dr. Antony notified and patient was sent to [facility] as ordered. Explained to patient plan of care. pt states understanding. Electronically Signed By E-Signature: with User ID: [id number] Datetime: 06/14/2018 10:03 NST Information EGA: 34.4 Test Number: 6 Time on Monitor: 06/14/2018 10:35 Time off Monitor: 06/14/2018 11:17 NST Duration (Min): 42 Reason for NST: Other Reason for NST Other: Antiphospholipid Syndrome Test and Monitor Explained: Monitor Explained; Test Explained; Verbalized Understanding Pulse: 115 Resp: 20 SBP: 135 DBP: 90 Test Evaluation NST Interventions: Reposition Patient NST Interventions Other: 1102-pt repositioned to right side Patient States Movement: Present Contraction Frequency: none FHR Baseline : 155 Variability: Moderate 6-25bpm Accelerations: 15X15 Decelerations: None FHR Category: Category I NST Results: Reactive Provider Notified: Dr Damian reviewed strip _ vital signs Comments: To u/s RYAN 12.5 cm cephalic EFW 2472 GM, 5LB 7 oz EFW 38% , AC+ 69% Repeat BP-1050 124/85 1100 bp 123/85, 1110 bp 120/80. Pulse oximeter applied with maternal tachycardia 108-129. anabela ren. Pt states her BP was elevated at the clinic 06/13 _ bloodwork was drawn, going back to [facility] on 06/20. Deneis headache, swelling of hands, feet or face, blurred vision or epigastric pain. Pr eeclampsia symptoms reviewed with intructions to go to the hospital if she experiences any symptoms. No swelling noted, reflexes 2+. Datetime: 06/11/2018 10:07 NST Information EGA: 34.1 NST Duration (Min): 36 Datetime: 06/07/2018 10:15 NST Information EGA: 33.4 NST Duration (Min): 40 Datetime: 06/04/2018 10:04 NST Information EGA: 33.1 NST Duration (Min): 52 Datetime: 05/28/2018 10:56 NST Information EGA: 32.1 NST Duration (Min): 27
[2018-06-21] MEDS ORDERED: PRENATAL VITAMIN PO SCH (21:00)
[2018-06-21] MEDS: LABETALOL 200 MG TAB PO SCH (21:02)
[2018-06-21] MEDS: ENOXAPARIN 40 MG/0.4 ML SYG SC SCH (21:02)
[2018-06-22] MEDS: LABETALOL 200 MG TAB PO SCH ×2 (09:14→21:29)
[2018-06-22] MEDS ORDERED: CALCIUM CARBONATE 500 MG CHEW TAB PO ONE (12:30)
--- NOTE | 2018-06-22 17:19 | PN ---
Date/Time of Note Date/Time of Note DATE: 06/22/18 TIME: 17:15 OB Subjective Subjective Subjective Currently does not have complaint of headache blurred vision and or epigastric pain OB Objective Objective Objective Vital signs are stable blood pressure is down to mid 130s over mid 80s General physical exam is also stable Patient has over 1 g of proteinuria in 24 hours Creatinine clearance is 297 OB Assessment/Plan Other Assessment: -induced hypertension at 35+ weeks History of positive TIO and patient currently has a butterfly rash on her face Antiphospholipid syndrome Other plan: We will continue to observe patient in house We will try to consult perinatologist within a day or 2 This service is strongly believes patient may benefit from prolonged hospitalization on until 37 weeks and actively deliver after 37 weeks TIERA BUSTILLO MD Jun 22, 2018 17:19
[2018-06-22] MEDS: PRENATAL VITAMIN PO SCH (21:27)
[2018-06-22] MEDS: ENOXAPARIN 40 MG/0.4 ML SYG SC SCH (21:31)
[2018-06-23] MEDS: LABETALOL 200 MG TAB PO SCH ×2 (08:48→21:21)
--- NOTE | 2018-06-23 18:09 | HP ---
Date/Time of Note Date/Time of Note Late entry DATE: 06/21/18 OB - History Hx of Present Free Text/Dictation 28-year-old female 2 para 0 AB 1 at 36 weeks and 4 days gestation admitted for possible -induced hypertension Patient course was complicated by #1 short cervix, #2 + TIO and bu tterfly facial skin rash, #3 antiphospholipid syndrome Currently patient on Lovenox and was admitted for 24-hour urine collection for protein and creatinine clearance Last Menstrual Period: September 14, 2017 Estimated Due Date: Jul 22, 2018 : 2 Para: 0 Spontaneous : 0 Therapeutic : 1 Care: Good Care Ultrasounds: Normal mid trimester US Obstetrical Complications: Other (Positive TIO and positive anti-phospholipid syndrome) Medical Complications: Other (Positive TIO) Past Family/Social History * Past Medical, Surgical, Family and Obstetric Histories reviewed from chart. OB Admission Exam Vital Signs Vital Signs Vital Signs Date Temp Pulse Resp B/P (MAP) Pulse Ox O2 O2 Flow FiO2 Time Delivery Rate 06/21/18 98.3 109 20 136/87 98 Room Air 14:58 (103) Physical Exam HEENT: WNL Heart: Rhythm Normal Lungs: Clear, Equal Abdomen: WNL Extremities: Normal Reflexes: Normal Cervical Dilatation: None Effacement: 50% Station: Ballotable Membranes: Intact Heart Rate: 140's Accelerations: Accelerations Present Decelerations: No Decelerations Varibility: Marked Contractions on Admission: None Last 72 hours Lab Results CBC & BMP 06/21/18 13:57 06/22/18 08:17 Liver Function Test 06/21/18 13:57 06/22/18 08:17 Alanine Aminotransferase (ALT/SGPT) 20 15 Albumin 3.2 L 3.5 Alkaline Phosphatase 160 H 158 H Aspartate Amino Transf (AST/SGOT) 32 36 Direct Bilirubin 0.00 0.00 Total Protein 6.8 7.3 OB Assessment/Plan Other Assessment: Possible -induced hypertension at 35+ weeks Antiphospholipid syndrome Positive TIO Other plan: Patient was admitted for 24-hour urine collection for creatinine clearance and protein TIERA BUSTILLO MD Jun 23, 2018 18:09
--- NOTE | 2018-06-23 18:12 | PN ---
Date/Time of Note Date/Time of Note DATE: 06/23/18 TIME: 18:09 OB Subjective Subjective Subjective Patient does not have complaint of a headache blurred vision and epigastric pain OB Objective Objective Objective Patient's blood pressure appears to be well controlled on labetalol Vital signs appear to be stable otherwise General physical exam is unchanged Perinatologist was contacted : Inasmuch as the recommendations were made to follow patient as outpatient disservice does not feel that patient would benefit outpatient management Recommendations were also made to deliver patient at 37 weeks This service is strongly believes that patient would benefit hospitalization at least until 37 weeks with constant monitoring OB Assessment/Plan Other Assessment: -induced hypertension 35 weeks and 6 days gestation Positive antiphospholipid syndrome Positive TIO Other plan: We will continue to observe patient in house Continue to monitor patient aggressively TIERA BUSTILLO MD Jun 23, 2018 18:12
[2018-06-23] MEDS: PRENATAL VITAMIN PO SCH (21:21)
[2018-06-23] MEDS: ENOXAPARIN 40 MG/0.4 ML SYG SC SCH (22:16)
[2018-06-24] MEDS: LABETALOL 200 MG TAB PO SCH ×2 (08:55→22:06)
--- NOTE | 2018-06-24 20:36 | PN ---
Date/Time of Note Date/Time of Note DATE: 06/24/18 TIME: 20:35 OB Subjective Subjective Subjective Patient is not complaining of headache blurred vision or epigastric pain OB Objective Objective Objective Vital signs are stable as well as general physical exam Perinatologist Dr. Stanton he was contacted and recommendations were made to continue in-house observation until 37 weeks and deliver for signs and symptoms of severe PIH and or at 37 weeks OB Assessment/Plan Other Assessment: -induced hypertension 36 weeks Positive TIO and positive antiphospholipid syndrome Other plan: Continue in-house observation until delivery TIERA BUSTILLO MD Jun 24, 2018 20:36
[2018-06-24] MEDS: PRENATAL VITAMIN PO SCH (22:04)
[2018-06-24] MEDS: ENOXAPARIN 40 MG/0.4 ML SYG SC SCH (22:06)
[2018-06-25] MEDS: LABETALOL 200 MG TAB PO SCH ×2 (08:58→21:23)
--- NOTE | 2018-06-25 20:13 | PN ---
Date/Time of Note Date/Time of Note DATE: 06/25/18 TIME: 20:12 OB Subjective Subjective Subjective Patient running stable course has no major complaints Does not complain of headache blurred vision or epigastric pain OB Objective Objective Objective Vital signs are stable as well as general physical exam OB Assessment/Plan Other Assessment: -induced hypertension at 36 weeks and 1 day Positive TIO Positive antiphospholipid syndrome Other plan: Continue with hospitalization until 37 weeks TIERA BUSTILLO MD Jun 25, 2018 20:13
[2018-06-25] MEDS ORDERED: MAGNESIUM HYDROXIDE 30ML CUP PO PRN (20:30)
[2018-06-25] MEDS: PRENATAL VITAMIN PO SCH (21:23)
[2018-06-25] MEDS: SENNA TAB PO SCH (21:24)
[2018-06-25] MEDS: ENOXAPARIN 40 MG/0.4 ML SYG SC SCH (22:19)
--- NOTE | 2018-06-26 01:45 | CONS ---
DATE OF ADMISSION: 06/21/2018 DATE OF CONSULTATION: 06/25/2018 HISTORY OF PRESENT ILLNESS: The patient is a primigravida at 36 weeks and 2 days, admitted yesterday with preeclampsia. It is important to mention she has antiphospholipid syndrome and currently is on Lovenox 40 mg subcutaneous daily. Her blood pressures during the hospital stay are in the normal to moderate range. A 24-hour urine fo r protein is above 1050 mg. Creatinine is normal. AST and ALT are normal. PHYSICAL EXAMINATION: VITAL SIGNS: Blood pressure currently is 120/68. SKIN: There is some butterfly rash on her cheeks; otherwise normal. heart tones are reassurin g. No contractions. IMPRESSION: Intrauterine at 36 weeks and 2 days with preeclampsia, currently stable, antip hospholipid syndrome on Lovenox prophylactic dose. RECOMMENDATIONS: In-house management and delivery at 37 weeks unless there is any evidence of severe preeclampsia either symptoms or labs or blood pressures or nonreassuring heart tone which coul d necessitate earlier delivery. Discontinue the Lovenox 24 hours prior to induction. if there is no cause complication after vaginal delivery, we can start the patient on ther apeutic dose of Lovenox 1 mg/kg twice a day 12 hours after vaginal delivery without complication, 24 hours after section without complication. Continue with those dose 6 weeks . However, I do recommend consulting rheumatology for con firmation of recommendation on this patient and for the patient to have a followup after delivery. In active labor, magnesium sulfate is recommended unless she has severe preeclampsia which magnesium sulfate should be started at the time of diagnosis. Continuous heart tone monitoring. Please let me know if you have any further questions. Dictated By: GARRY TRIPLETT MD [facility] Conf#: [id number] DID#: [id number] CC: TIERA BUSTILLO MD;*EndCC*
[2018-06-26] MEDS: SENNA TAB PO SCH ×2 (08:36→21:00)
[2018-06-26] MEDS: FERROUS SULFATE (EC) 325 MG TAB PO SCH (08:36)
[2018-06-26] MEDS: LABETALOL 200 MG TAB PO SCH ×2 (08:36→21:55)
[2018-06-26] MEDS ORDERED: PRENATAL VITAMIN PO SCH (09:00)
--- NOTE | 2018-06-26 16:13 | PN ---
Date/Time of Note Date/Time of Note DATE: 06/26/18 TIME: 16:12 OB Subjective Subjective Subjective Currently patient is not complaining of headache blurred vision or epigastric pain OB Objective Objective Objective Vital signs are stable as well as general physical exam heart tones appeared reactive OB Assessment/Plan Other Assessment: 36 weeks and 2 days gestation PIH Positive TIO and positive antiphospholipid syndrome Other plan: Continue to observe until 37 weeks at which point will proceed with induction TIERA BUSTILLO MD Jun 26, 2018 16:13
[2018-06-26] MEDS: PRENATAL VITAMIN PO SCH (21:54)
[2018-06-26] MEDS: ENOXAPARIN 40 MG/0.4 ML SYG SC SCH (22:10)
[2018-06-27] MEDS: SENNA TAB PO SCH ×2 (07:45→21:00)
[2018-06-27] MEDS: FERROUS SULFATE (EC) 325 MG TAB PO SCH (08:39)
[2018-06-27] MEDS: LABETALOL 200 MG TAB PO SCH ×2 (08:40→21:15)
[2018-06-27] MEDS ORDERED: SALINE 0.65% 45 ML NAS SPRAY NASAL PRN (12:30)
--- NOTE | 2018-06-27 18:24 | PN ---
Date/Time of Note Date/Time of Note DATE: 06/27/18 TIME: 18:23 OB Subjective Subjective Subjective Has no complaint of headache blurred vision or or epigastric pain OB Objective Objective Objective Blood pressure and vital signs are stable General physical exam is unchanged Labs were normal OB Assessment/Plan Other Assessment: 36 weeks 3 4 days gestation -induced hypertension Positive TIO and antiphospholipid syndrome Other plan: Will induce labor at 37 weeks TIERA BUSTILLO MD Jun 27, 2018 18:24
[2018-06-27] MEDS: PRENATAL VITAMIN PO SCH (21:15)
[2018-06-27] MEDS: ENOXAPARIN 40 MG/0.4 ML SYG SC SCH (21:17)
[2018-06-28] MEDS: SENNA TAB PO SCH ×2 (09:23→21:00)
[2018-06-28] MEDS: FERROUS SULFATE (EC) 325 MG TAB PO SCH ×2 (09:23→09:24)
[2018-06-28] MEDS: LABETALOL 200 MG TAB PO SCH ×2 (09:25→21:15)
--- NOTE | 2018-06-28 15:32 | PN ---
Date/Time of Note Date/Time of Note DATE: 06/28/18 TIME: 15:26 OB Subjective Subjective Subjective No complaint of headache blurred vision or epigastric pain Feeling well OB Objective Objective Objective Vital signs stable as well as general physical exam heart tones are reactive OB Assessment/Plan Other Assessment: Regnancy induced hypertension at 36 weeks and 4 days Positive TIO and antiphospholipid syndrome Other plan: We will continue to observe until 37 weeks when induction will start TIERA BUSTILLO MD Jun 28, 2018 15:32
[2018-06-28] MEDS: PRENATAL VITAMIN PO SCH (21:14)
[2018-06-28] MEDS: ENOXAPARIN 40 MG/0.4 ML SYG SC SCH (22:48)
[2018-06-29] MEDS: SENNA TAB PO SCH ×2 (07:46→21:00)
[2018-06-29] MEDS: LABETALOL 200 MG TAB PO SCH ×2 (08:16→21:08)
[2018-06-29] MEDS: FERROUS SULFATE (EC) 325 MG TAB PO SCH (08:19)
[2018-06-29] MEDS: PRENATAL VITAMIN PO SCH (21:08)
[2018-06-29] MEDS: ENOXAPARIN 40 MG/0.4 ML SYG SC SCH (22:32)
--- NOTE | 2018-06-29 22:57 | PN ---
Date/Time of Note Date/Time of Note DATE: 06/29/18 TIME: 22:54 OB Subjective Subjective Subjective NC/O head ache, blurred vision and or epigastric pain OB Objective Objective Objective vss and general P/E are unchanged BPs are stable OB Assessment/Plan Other Assessment: PIH at 36.5 weeks Other plan: induce at 37 weeks TIERA BUSTILLO MD Jun 29, 2018 22:57
[2018-06-30] MEDS: SENNA TAB PO SCH ×2 (07:35→21:00)
[2018-06-30] MEDS: LABETALOL 200 MG TAB PO SCH ×2 (08:25→21:02)
[2018-06-30] MEDS: FERROUS SULFATE (EC) 325 MG TAB PO SCH (08:25)
--- NOTE | 2018-06-30 13:24 | PN ---
Date/Time of Note Date/Time of Note DATE: 06/30/18 TIME: 13:23 OB Subjective Subjective Subjective Patient does not have complaint of headache blurred vision or epigastric pain OB Objective Objective Objective Vital signs blood pressure are stable as well as general physical exam heart tones appeared reactive OB Assessment/Plan Other Assessment: PIH at 36 weeks and 6 days gestation Positive TIO and antiphospholipid syndrome Other plan: Induce labor following day TIERA BUSTILLO MD Jun 30, 2018 13:24
[2018-06-30] MEDS: PRENATAL VITAMIN PO SCH (21:02)
[2018-07-01] MEDS: SENNA TAB PO SCH (09:32)
[2018-07-01] MEDS: FERROUS SULFATE (EC) 325 MG TAB PO SCH (09:34)
[2018-07-01] MEDS: LABETALOL 200 MG TAB PO SCH ×2 (09:35→21:16)
[2018-07-01] MEDS ORDERED: LACTATED RINGER'S 1,000 ML IV PRN (10:41)
[2018-07-01] MEDS ORDERED: CARBOPROST 250 MCG INJ IM PRN (11:00)
[2018-07-01] MEDS ORDERED: OXYTOCIN 30 UNITS/LR 500 ML IV SCH ×3 (11:00→18:30)
[2018-07-01] MEDS ORDERED: IBUPROFEN 600 MG TAB PO PRN (11:00)
[2018-07-01] MEDS ORDERED: MISOPROSTOL 200 MCG TAB PR PRN (11:00)
[2018-07-01] MEDS ORDERED: METHYLERGONOVINE 0.2 MG INJ IM PRN (11:00)
[2018-07-01] MEDS ORDERED: BUTORPHANOL 2 MG INJ IV PRN (11:00)
[2018-07-01] MEDS ORDERED: LIDOCAINE 1% (MPF) 30 ML INJ INJ PRN (11:00)
[2018-07-01] MEDS ORDERED: OXYTOCIN 30 UNITS/LR 500 ML IV PRN (11:00)
--- NOTE | 2018-07-01 18:26 | PN ---
Date/Time of Note Date/Time of Note DATE: 07/01/18 TIME: 18:24 OB Subjective Subjective Subjective Patient started complaining of itching in palm of her hands and soles of her feet Denies headache blurred vision or epigastric pain OB Objective Objective Objective Vital signs and general physical exam are stable Cervix was examined to be 80% effaced and 4 cm dilated Patient in labor delivery for induction of labor CMP and CBC are ordered with diagnosis of rule out cholestasis of as well OB Assessment/Plan Other Assessment: -induced hypertension at 37 weeks Possible cholestasis Positive antiphospholipid syndrome and positive TIO Other plan: Start induction using Pitocin TIERA BUSTILLO MD Jul 01, 2018 18:26
[2018-07-01] MEDS: LACTATED RINGER'S 1,000 ML IV SCH (18:28)
[2018-07-01] MEDS ORDERED: AMPICILLIN 2 GM/NS (PMX) 100 ML ONE (21:37)
--- NOTE | 2018-07-01 22:31 | PREAC ---
Date/Time of Note Date/Time of Note DATE: 07/01/18 TIME: 22:31 Anesthesia Eval and Record Evaluation Time Pre-Procedure Interview DATE: 07/01/18 TIME: 22:31 Age 28 Sex female NPO: 8 hrs Preoperative diagnosis labor pain Planned procedure labor epidural Past Medical History Past Medical History: None Surgery & Anesthesia Issues No known issue Meds Anticoagulation: No Beta Mercy within 24 hr: No Reason Beta Mercy not given: Pt. not on B-Mercy Active Scripts [NIFEdipine] 10 MG CAP No Conflict Check, 20 MG PO Q6, #120 1 Refill Prov:TIERA BUSTILLO MD 06/02/18 Progesterone,Micronized* (Progesterone*) 100 Mg Capsule, 200 MG VAG HS, #120 CAP 0 Refills Prov:TIERA BUSTILLO MD 04/03/18 Ferrous Sulfate* (Ferrous Sulfate*) 325 Mg Tabec, 325 MG PO DAILY, #120 TAB 0 Refills Prov:TIERA BUSTILLO MD 04/03/18 Reported Medications Enoxaparin Sodium* (Lovenox*) 40 Mg/0.4 Ml Syringe, 40 MG SC DAILY, SYR 05/31/18 Pnv95/Ferrous Fumarate/FA ( Vitamins Tablet) 1 Each Tablet, 1 EACH PO DAILY, TAB 05/31/18 Current Medications Labetalol HCl (Normodyne) 200 mg BID PO Last administered on 07/01/18at 21:16; Admin Dose 200 MG; Start 06/21/18 at 21:00 Prenat Multivit/ [place]/Iron/Folic Ac () 1 tab DAILY@2100 PO Last administered on 06/30/18at 21:02; Admin Dose 1 TAB; Start 06/22/18 at 21:00 Ferrous Sulfate (Ferrous Sulfate (Ec)) 325 mg DAILY PO Last administered on 07/01/18at 09:34; Admin Dose 325 MG; Start 06/26/18 at 09:00 Magnesium Hydroxide (Milk Of Mag) 30 ml BID PRN PO constipation; Start 06/25/18 at 20:30 Senna (Senokot) 2 tab BID PO Last administered on 07/01/18at 09:32; Admin Dose 2 TAB; Start 06/25/18 at 21:00 Sodium Chloride (Deep Sea) 1 spray Q2H PRN NASAL NASAL CONGESTION Last admi nistered on 06/27/18at 13:54; Admin Dose 1 SPRAY; Start 06/27/18 at 12:30 Lactated Ringer's 1,000 ml @ 125 mls/hr Q8H IV Last administered on 07/01/18at 18:28; Admin Dose 125 MLS/HR; Start 07/01/18 at 10:41 Butorphanol Tartrate (Stadol) 2 mg Q2H PRN IV .PAIN; Start 07/01/18 at 11:00 Lidocaine (Xylocaine 1% (Mpf)) 30 ml ONCE PRN INJ .EPISIOTOMY; Start 07/01/18 at 11:00 Oxytocin/Lactated Ringer's 500 ml @ 500 mls/hr ONCE POST IV ; Start 07/01/18 at 11:00 Oxytocin/Lactated Ringer's 500 ml @ 125 mls/hr POST IV ; Start 07/01/18 at 11:00 Ibuprofen (Motrin) 600 mg ONCE PRN PO .PAIN 1-5; Start 07/01/18 at 11:00 Lactated Ringer's 1,000 ml @ 2,000 mls/hr Q30M PRN IV .ANESTHESIA; Start 07/01/18 at 10:41 Oxytocin/Lactated Ringer's 500 ml @ 0 mls/hr ONCE PRN IV .VAGINAL BLEEDING; Sta rt 07/01/18 at 11:00 Methylergonovine Maleate (Methergine) 0.2 mg ONCE PRN IM .VAGINAL BLEEDING; Sta rt 07/01/18 at 11:00 Carboprost Tromethamine (Hemabate) 250 mcg ONCE PRN IM .VAGINAL BLEEDING; Start 07/01/18 at 11:00 Misoprostol (Cytotec) 1,000 mcg ONCE PRN MA .VAGINAL BLEEDING; Start 07/01/18 at 11:00 Oxytocin/Lactated Ringer's 500 ml @ 0 mls/hr FOR INDUCTION IV Last administered on 07/01/18at 18:31; Admin Dose 0 MLS/HR; Start 07/01/18 at 18:30 Meds reviewed: Yes Allergies Coded Allergies: Pork/Porcine Containing Products (Verified Allergy, Mild, 06/21/18) Allergies Reviewed: Yes Labs/Studies Labs Reviewed: Reviewed by anesthesiologist Result Diagram: 07/01/18 1102 07/01/18 1102 Laboratory Tests 07/01/18 11:02 Blood Bank Test 07/01/18 11:02 Antibody Screen NEGATIVE Blood Type O POSITIVE test: Positive Pre-procedure Exam Airway: Adequate mouth opening, Adequate thyromental dist Mallampati: Mallampati III Teeth: Normal Lung: Normal Heart: Normal ASA Physical Status ASA physical status: 2 Emergency: None Planned Anesthetic Neuraxial: Epidural Planned Pain Management Epidural, Parenteral pain med, Other neuraxial med Pre-operative Attestations Prior to commencing anesthesia and surgery, the patient was re-evaluated, there was verification of: *The patient's identity *The results of appropriate recent lab work and preoperative vital signs *The above evaluation not changing prior to induction *Anesthetic plan, risk benefits, alternative and complications discussed with patient/family; questions answered; patient/family understands, accepts and wishes to proceed. CHIQUIS HOLLINS MD Jul 01, 2018 22:31
[2018-07-01] MEDS ORDERED: NALOXONE (0.4 MG/ML) INJ IV PRN (23:00)
[2018-07-01] MEDS ORDERED: KETOROLAC 30 MG INJ IV PRN (23:00)
[2018-07-01] MEDS ORDERED: ONDANSETRON 4 MG INJ IV PRN (23:00)
[2018-07-01] MEDS ORDERED: ZOLPIDEM 5 MG TAB PO PRN (23:00)
[2018-07-01] MEDS ORDERED: FENTAnyl 2MCG/ML-ROPIV 0.2% 100 ML BAG EPI SCH (23:00)
[2018-07-01] MEDS ORDERED: DIPHENHYDRAMINE 50 MG INJ IV PRN (23:00)
[2018-07-01] MEDS ORDERED: HYDROmorphONE 0.5 MG/0.5 ML SYG IV PRN ×2 (23:00)
[2018-07-02] VITALS (10 sets, daily range): BP systolic 119–138; BP diastolic 68–80; PULSE 78–105; RESP 16–20
[2018-07-02] MEDS ORDERED: MAGNESIUM SULFATE 3 GM in DEXTROSE 5% 100 ML IVPB ONE ×2
[2018-07-02] MEDS ORDERED: MAGNESIUM SULFATE 20 GM/500 ML 500 ML IV SCH (00:09)
--- NOTE | 2018-07-02 00:32 | PAC ---
Date/Time of Note Date/Time of Note DATE: 07/02/18 TIME: 00:32 Post-Anesthesia Notes Post-Anesthesia Note Activity: WNL Respiratory function: WNL Cardiovascular function: WNL Mental status: Baseline Pain reasonably controlled: Yes Hydration appropriate: Yes Nausea/Vomiting absent: Yes CHIQUIS HOLLINS MD Jul 02, 2018 00:32
--- NOTE | 2018-07-02 00:33 | PAC ---
Date/Time of Note Date/Time of Note DATE: 07/02/18 TIME: 00:33 Post-Anesthesia Notes Post-Anesthesia Note Activity: WNL Respiratory function: WNL Cardiovascular function: WNL Mental status: Baseline Pain reasonably controlled: Yes Hydration appropriate: Yes Nausea/Vomiting absent: Yes CHIQUIS HOLLINS MD Jul 02, 2018 00:33
[2018-07-02] MEDS: LACTATED RINGER'S 1,000 ML IV SCH (01:06)
[2018-07-02] MEDS ORDERED: MINERAL OIL LIGHT 10 ML VIAL ONE (05:48)
[2018-07-02] MEDS ORDERED: MINERAL OIL LIGHT 10 ML VIAL TOP ONE (06:00)
--- NOTE | 2018-07-02 06:43 | LDN ---
Date/Time of Note Date/Time of Note DATE: 07/02/18 TIME: 06:40 Delivery Summary Normal spontaneous vaginal delivery of a viable over intact perineum Weeks of Gestation 37 weeks and 1 day Placenta Delivered: Spontaneously, Intact & Complete Meconium: none Episiotomy: No Perineal laceration: 1 Laceration repair: 2 times vestibular laceration on inner side of the right and left labia minora were repaired using 4-0 chromic on small half needle First-degree perineal laceration was repaired with single layer of continuous 2-0 Vicryl stitch Anesthesia type: Epidural Estimated blood loss: 300 Sponge & Needle done & correct: Yes All needle counts correct: Yes Any foreign bodies felt in the: No Infant Delivery Information Sex Sex: female Apgars 1 Minute: 8 5 Minute: 9 Suctioning Nose & mouth suctioned at anuradha: Yes Delee suction performed: No Umbilical Cord Umbilical cord with: 3 Vessels Cord presentations: no nuchal cord Cord Blood was obtained: Yes Mother & Baby Disposition Disposition Mom & Baby to Maternity; Good: Yes (Mother and baby were recovered in good c ondition) Mom transferred to: Other (Maternity) Baby to NICU: No TIERA BUSTILLO MD Jul 02, 2018 06:43
[2018-07-02] MEDS ORDERED: KETOROLAC 30 MG INJ IV STA (06:44)
[2018-07-02] MEDS ORDERED: IBUPROFEN 600 MG TAB ONE (09:21)
[2018-07-02] MEDS: IBUPROFEN 600 MG TAB PO SCH ×2 (09:24→18:14)
[2018-07-02] MEDS ORDERED: METHYLERGONOVINE 0.2 MG INJ IM PRN (09:30)
[2018-07-02] MEDS ORDERED: CARBOPROST 250 MCG INJ IM PRN (09:30)
[2018-07-02] MEDS ORDERED: MISOPROSTOL 200 MCG TAB PR PRN (09:30)
[2018-07-02] MEDS ORDERED: WITCH HAZEL/GLYCERIN PAD PR PRN (09:30)
[2018-07-02] MEDS ORDERED: HYDROCODONE/APAP (5/325) TAB PO PRN ×2 (09:30)
[2018-07-02] MEDS ORDERED: BENZOCAINE 20% 56 ML SPRAY TOP PRN (09:30)
[2018-07-02] MEDS ORDERED: ZOLPIDEM 5 MG TAB PO PRN (09:30)
[2018-07-02] MEDS ORDERED: DIBUCAINE 1% 30 GM OINT TOP PRN (09:30)
[2018-07-02] MEDS ORDERED: OXYTOCIN 30 UNITS/LR 500 ML IV PRN (09:30)
[2018-07-02] MEDS ORDERED: LANOLIN HPA 1 PKT TOP PRN (09:30)
[2018-07-02] MEDS ORDERED: OXYTOCIN 30 UNITS/LR 500 ML IV SCH (12:00)
[2018-07-02] MEDS: CEPHALEXIN 500 MG CAP PO SCH ×2 (12:27→18:14)
[2018-07-02] MEDS: LACTATED RINGER'S 1,000 ML IV* SCH ×2 (17:03→21:24)
[2018-07-02] MEDS: SENNA/DOCUSATE NA (8.6MG/50MG) TAB PO SCH (21:17)
[2018-07-02] MEDS: MAGNESIUM HYDROXIDE 30ML CUP PO SCH ×2 (21:17→21:19)
[2018-07-02] MEDS: MAGNESIUM SULFATE 20 GM/500 ML 500 ML IV SCH (21:23)
[2018-07-03] VITALS (10 sets, daily range): BP systolic 109–135; BP diastolic 54–83; PULSE 63–83; RESP 17–18
[2018-07-03] MEDS: IBUPROFEN 600 MG TAB PO SCH ×5 (00:26→23:46)
[2018-07-03] MEDS: CEPHALEXIN 500 MG CAP PO SCH ×5 (00:26→23:46)
[2018-07-03] MEDS: LACTATED RINGER'S 1,000 ML IV* SCH ×3 (01:03→17:03)
[2018-07-03] MEDS: MAGNESIUM SULFATE 20 GM/500 ML 500 ML IV SCH (05:03)
[2018-07-03] MEDS: SENNA/DOCUSATE NA (8.6MG/50MG) TAB PO SCH ×2 (08:59→20:59)
[2018-07-03] MEDS: ENOXAPARIN 40 MG/0.4 ML SYG SC SCH (09:01)
--- NOTE | 2018-07-03 18:00 | DS ---
Date/Time of Note Date/Time of Note DATE: 07/03/18 TIME: 17:58 Discharge Summary Admission/Discharge Info Admit Date/Time Jun 21, 2018 at 14:40 Discharge Date/Time 07/04 2018 Discharge Diagnosis Status post vaginal delivery induced hypertension Positive TIO and positive antiphospholipid syndrome Patient Condition: Good Hx of Present Illness 28-year-old female admitted for -induced hypertension at 35+ weeks and per perinatologist recommendation was kept in-house because of her medical history Hospital Course Hospital course remained uncomplicated Patient was discharged home on second day with good prognosis and condition Was told to return to clinic following day Home Meds Active Scripts [NIFEdipine] 10 MG CAP No Conflict Check, 20 MG PO Q6, #120 1 Refill Prov:TIERA BUSTILLO MD 06/02/18 Progesterone,Micronized* (Progesterone*) 100 Mg Capsule, 200 MG VAG HS, #120 CAP 0 Refills Prov:TIERA BUSTILLO MD 04/03/18 Ferrous Sulfate* (Ferrous Sulfate*) 325 Mg Tabec, 325 MG PO DAILY, #120 TAB 0 Refills Prov:TIERA BUSTILLO MD 04/03/18 Reported Medications Enoxaparin Sodium* (Lovenox*) 40 Mg/0.4 Ml Syringe, 40 MG SC DAILY, SYR 05/31/18 Pnv95/Ferrous Fumarate/FA ( Vitamins Tablet) 1 Each Tablet, 1 EACH PO DAILY, TAB 05/31/18 Primary Care Provider Corine Angela Pending Labs Laboratory Tests Test 07/02/18 18:40 07/03/18 00:40 07/03/18 06:13 Magnesium Level 3.8 mg/dl (1.7-2.5) 3.8 4.0 mg/dl (1.7-2.5) mg/dl (1.7-2.5) White Blood Count 10.6 10^3/ul (4.8-10.8) Red Blood Count 3.68 10^6/ul (4.20-5.40 ) Hemoglobin 11.4 g/dl (12.0-16.0) Hematocrit 33.8 % (37.0-47.0) Mean Corpuscular 91.8 Volume fl (82.0-101.0) Mean Corpuscular 31.0 Hemoglobin pg (29.0-33.0) Mean Corpuscular 33.7 Hemoglobin Concent g/dl (32.0-37.0) Red Cell 14.2 % (11.5-14.5) Distribution Width Platelet Count 153 10^3/UL (140-415) Mean Platelet 12.6 fl (7.4-10.4) Volume Immature 0.900 Granulocytes % % (0.001-0.429) Neutrophils % 68.8 % (39.0-77.0) Lymphocytes % 16.6 % (15.0-51.0) Monocytes % 12.6 % (0.0-11.0) Eosinophils % 0.7 % (0.0-7.0) Basophils % 0.4 % (0.0-2.0) Nucleated Red Blood 0.0 Cells % /100WBC (0.0-0.0) Immature 0.100 Granulocytes # 10^3/ul (0.0-0.031 ) Neutrophils # 7.3 10^3/ul (1.6-7.5) Lymphocytes # 1.8 10^3/ul (0.8-2.9) Monocytes # 1.3 10^3/ul (0.3-0.9) Eosinophils # 0.1 10^3/ul (0.0-0.5) Basophils # 0.0 10^3/ul (0.0-0.1) Nucleated Red Blood 0.0 Cells # 10^3/ul (0.0-0.0) TIERA BUSTILLO MD Jul 03, 2018 18:00
--- NOTE | 2018-07-03 18:01 | DS ---
Date/Time of Note Date/Time of Note Home next day DATE: 07/03/18 TIME: 18:00 Obstetrical Discharge Record Final Diagnosis Final Diagnosis: Term delivered Other Final Diagnosis Status post vaginal delivery Vaginal Delivery Obstetrical Delivery: Spontaneous, Laceration, Repaired Complications Preg induced Hypertension, Other (Positive TIO and antiphospholipid syndrome) Condition on Discharge Physical Assessment Voiding: Yes Bowel Movement: Yes Breast: Soft, non-tender, Filling Fundus: Firm Abdomen and Incision: Abdomen is soft fundus is firm at the U Episiotomy: Perineum is healing well and appears clean Calf Tenderness: No Patient Condition: Good TIERA BUSTILLO MD Jul 03, 2018 18:01
--- NOTE | 2018-07-03 18:03 | PD.PPDC ---
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 Provider Information Physician Information 28-year-old female admitted with -induced hypertension and finally had augmentation of labor and resultant vaginal delivery Diagnosis [id number] Final Diagnosis: [id number] Status post vaginal delivery Condition [id number] Patient Condition: Kkzir0d Good Diet Ylavp0Xh Diet: Gjtft3o Resume Regular Diet Activity/Restrictions [id number] Activity: [id number] Normal Activity May Shower [id number] Restrictions: Bsmid3w Nothing in the Vagina [id number] Return to Work or School: [id number] Aug 19, 2018 Follow-up Follow-up with Physician: 1, 2, Day/Days (In clinic for blood pressure check) Return to clinic for [id number] OB Instructions: Qjkgu0d Breast Tenderness Depression Comment: Pelvic rest for 6 weeks TIERA BUSTILLO MD Jul 03, 2018 18:03
[2018-07-03] MEDS ORDERED: IBUP-1542 PO (18:04)
[2018-07-03] MEDS: MAGNESIUM HYDROXIDE 30ML CUP PO SCH (21:00)
[2018-07-04 04:10] VITALS: BP 128/83; PULSE 77; RESP 17
[2018-07-04] MEDS: IBUPROFEN 600 MG TAB PO SCH ×2 (05:43→12:17)
[2018-07-04] MEDS: CEPHALEXIN 500 MG CAP PO SCH ×2 (05:43→12:17)
[2018-07-04 08:30] VITALS: BP 139/87; PULSE 82; RESP 18
[2018-07-04] MEDS ORDERED: DIPHTH/TET/ACEL PERTUSS (ADULT) 0.5 ML VIAL IM* ONE (09:00)
[2018-07-04] MEDS: MAGNESIUM HYDROXIDE 30ML CUP PO SCH (09:00)
[2018-07-04] MEDS ORDERED: MEASLES,MUMPS,RUBELLA VACCINE INJ SC* ONE (09:00)
[2018-07-04] MEDS ORDERED: VARICELLA VACCINE LIVE/PF 1,350 UNIT/0.5 ML ML SC* ONE (09:00)
[2018-07-04] MEDS: SENNA/DOCUSATE NA (8.6MG/50MG) TAB PO SCH (09:33)
[2018-07-04] MEDS: ENOXAPARIN 40 MG/0.4 ML SYG SC SCH (09:35)
== END 2018-07-04 14:43 | disposition home or self-care (01) | DRG 806 ==
LOC: L-D 12:37 → OBT 12:37 → L-D 14:40 → PP1 15:53 → L-D 07-01 17:47 → PP1 07-02 15:14
PROVIDERS: ADMIT Obstetrics & Gynecology; ATTEND Obstetrics & Gynecology
PROC: 10E0XZZ Delivery of Products of Conception, External Approach (ICD-10-PCS; principal; 2018-07-02)
PROC: 0HQ9XZZ Repair Perineum Skin, External Approach (ICD-10-PCS; 2018-07-02)
DX: O13.4 Gestational [pregnancy-induced] hypertension without significant proteinuria, complicating childbirth (principal); O26.873 Cervical shortening, third trimester; Z37.0 Single live birth; O99.12 Other diseases of the blood and blood-forming organs and certain disorders involving the immune mechanism complicating childbirth; D68.61 Antiphospholipid syndrome; O70.0 First degree perineal laceration during delivery; Z3A.37 37 weeks gestation of pregnancy
CPT/HCPCS: 62319; 76815; 76818; 80053; 81001; 82575; 83735; 83789; 84156; 84560; 85025; 85384; 85610; 85730; 86255; 86592; 86850; 86900; 86901; 87086; 87340; 90715; 90716; G0463; J0290; J0702; J1650; J2590; J3010; J3475; J7120

== ENCOUNTER 2018-08-03 14:47 | Emergency (ER) | payer OTHER ==
[~2018-08-03] VITALS: Ht 152.4 cm; Wt 71.9 kg
[~2018-08-03 14:47] MED LIST changes: +IBUP-1542 PO; -PROG100C5 VAG
[2018-08-03 14:54] VITALS: BP 137/74; PULSE 92; RESP 20; Ht 152.4 cm; Wt 71.9 kg
[2018-08-03] MEDS ORDERED: ACET500C5 PO (20:30)
[2018-08-03] MEDS ORDERED: CEPH-443 PO (20:30)
--- NOTE | 2018-08-03 20:37 | ERD ---
ER Documentation Chief Complaint Chief Complaint vag bleed today; vag 1mo ago; taking blood thinners x 6 mos HPI 28-year-old female patient with a past medical history of antiphospholipid syndrome, recently had a vaginal presents to the ED as a for vaginal bleeding that started earlier today. Patient reports that she stopped breast- feeding about 2 weeks ago. States that she stopped taking control. Denies any nausea, vomiting, diarrhea, neck stiffness, abdominal pain. Patient reports that she changed about 5 pads today. Reports that her [employer] is Dr. Antony. States that she has an appointment with him, August 08, 2018. ROS All systems reviewed and are negative except as per history of present illness. Medications Home Meds Active Scripts Acetaminophen* (Tylophen*) 500 Mg Capsule, 1 CAP PO Q6H PRN for PAIN AND OR ELEVATED TEMP, #20 CAP Prov:KAL BASS PA-C 08/03/18 Cephalexin* (Keflex*) 500 Mg Capsule, 500 MG PO QID for 7 Days, CAP Prov:KAL BASS PA-C 08/03/18 Ibuprofen* (Ibuprofen*) 600 Mg Tablet, 600 MG PO Q6, #60 TAB 0 Refills Prov:TIERA BUSTILLO MD 07/03/18 [NIFEdipine] 10 MG CAP No Conflict Check, 20 MG PO Q6, #120 1 Refill Prov:TIERA BUSTILLO MD 06/02/18 Ferrous Sulfate* (Ferrous Sulfate*) 325 Mg Tabec, 325 MG PO DAILY, #120 TAB 0 Refills Prov:TIERA BUSTILLO MD 04/03/18 Reported Medications Enoxaparin Sodium* (Lovenox*) 40 Mg/0.4 Ml Syringe, 40 MG SC DAILY, SYR 05/31/18 Pnv95/Ferrous Fumarate/FA ( Vitamins Tablet) 1 Each Tablet, 1 EACH PO DAILY, TAB 05/31/18 Allergies Allergies: Coded Allergies: Pork/Porcine Containing Products (Verified Allergy, Mild, 06/21/18) PMhx/Soc Medical and Surgical Hx: pt denies Medical Hx History of Surgery: Yes (APPY) Anesthesia Reaction: No Hx Neurological Disorder: No Hx Respiratory Disorders: No Hx Cardiac Disorders: Yes (HTN) Hx Miscellaneous Medical Probl: Yes (Antiphospholipid Syndrome) Hx Alcohol Use: No Hx Substance Use: No Hx Tobacco Use: No Smoking Status: Never smoker FmHx Family History: No diabetes, No coronary disease Physical Exam Vitals Vital Signs Date Temp Pulse Resp B/P (MAP) Pulse Ox O2 O2 Flow FiO2 Time Delivery Rate 08/03/18 97.9 92 20 137/74 98 14:54 (95) Physical Exam Const: Mqu-jlf-xrldvmqkz, well-nourished. In no acute distress. Head: Atraumatic, normocephalic Eyes: Normal Conjunctiva without injection. No purulent discharge. ENT: Normal external ear, nose. Moist oropharynx without tonsillar exudates. Non-erythematous pharynx. Uvula midline. No drooling. No trismus. Neck: No cervical midline tenderness. Full range of motion. No meningismus. No cervical lymphadenopathy. No JVD. Resp: Clear to auscultation bilaterally. No wheezing, rhonchi, rales, or crackles. No accessory muscle use. No retractions. Cardio: Regular rate and rhythm. No murmurs, rubs or gallops. Abd: Soft, nontender, non distended. Normal bowel sounds. No palpable masses. No rebound tenderness. No guarding. Negative McBurney's point. Negative psoas sign. Negative obturator sign. Skin: No petechiae or rashes Back: No midline tenderness. No CVA tenderness. Ext: No cyanosis, or edema. Neur: Awake and alert. Normal gait. Normal coordination. Psych: Normal Mood and Affect Result Diagram: 08/03/18175508/03/181755 Results 24 hrs Laboratory Tests Test 08/03/18 17:48 08/03/18 17:53 08/03/18 17:56 Urine Color RED Urine Clarity CLEAR Urine pH 6.0 Urine Specific Bradner 1.003 Urine Ketones NEGATIVE mg/dL Urine Nitrite NEGATIVE mg/dL Urine Bilirubin NEGATIVE mg/dL Urine Urobilinogen NEGATIVE mg/dL Urine Leukocyte Esterase TRACE Paul/ul Urine Microscopic RBC > 182 /HPF Urine Microscopic WBC 9 /HPF Urine Bacteria FEW /HPF Urine Hemoglobin 3+ mg/dL Urine Glucose NEGATIVE mg/dL Urine Total Protein 2+ mg/dl POC Beta HCG, Qualitative NEGATIVE White Blood Count 7.1 10^3/ul Red Blood Count 4.39 10^6/ul Hemoglobin 13.1 g/dl Hematocrit 38.5 % Mean Corpuscular Volume 87.7 fl Mean Corpuscular Hemoglobin 29.8 pg Mean Corpuscular 34.0 g/dl Hemoglobin Concent Red Cell Distribution Width 12.1 % Platelet Count 260 10^3/UL Mean Platelet Volume 10.8 fl Immature Granulocytes % 0.400 % Neutrophils % 64.5 % Lymphocytes % 24.4 % Monocytes % 8.5 % Eosinophils % 1.8 % Basophils % 0.4 % Nucleated Red Blood Cells % 0.0 /100WBC Immature Granulocytes # 0.030 10^3/ul Neutrophils # 4.6 10^3/ul Lymphocytes # 1.7 10^3/ul Monocytes # 0.6 10^3/ul Eosinophils # 0.1 10^3/ul Basophils # 0.0 10^3/ul Nucleated Red Blood Cells # 0.0 10^3/ul Sodium Level 145 mmol/L Potassium Level 4.4 mmol/L Chloride Level 107 mmol/L Carbon Dioxide Level 25 mmol/L Anion Gap 13 Blood Urea Nitrogen 9 mg/dl Creatinine 0.51 mg/dl Est Glomerular Filtrat > 60 mL/min Rate mL/min Glucose Level 92 mg/dl Calcium Level 9.2 mg/dl Total Bilirubin 0.2 mg/dl Direct Bilirubin 0.00 mg/dl Indirect Bilirubin 0.2 mg/dl Aspartate Amino 26 IU/L Transf (AST/SGOT) Alanine 23 IU/L Aminotransferase (ALT/SGPT) Alkaline Phosphatase 124 IU/L Total Protein 7.9 g/dl Albumin 4.4 g/dl Globulin 3.50 g/dl Albumin/Globulin Ratio 1.25 Procedures/MDM 28-year-old female patient with a past medical history of antiphospholipid syndrome presents to the ED stating that she has had vaginal 1 month ago. She is a . States that she is taking blood thinners. Patient was further worked up with CBC, CMP, lipase, UA, ultrasound. CBC: No leukocytosis. No e/o of systemic infection. No e/o anemia. CMP: No e/o severe acidosis, alkalosis, renal failure, diabetic ketoacidosis, liver disease Urine: trace leukocyte esterase, no nitrites, no hematuria. Urine : Negative IMPRESSION: There is appearance mild thickening of the endometrium in the lower uterine segment/endocervical canal which could be secondary to blood products. No definite vascular flow suggestive of retained products conception is seen in this region. Please see above. Since patient breast-feeding, this likely could be secondary to patient's menstruation. Patient has a urinary tract infection. Low suspicion for ectopic , ovarian torsion, gastritis, GERD, peptic ulcer disease, cholecystitis, choledocholithiasis, cholangitis, pancreatitis, appendicitis, bowel obstruction, ileus, volvulus, nephrolithiasis, pyelonephritis, hepatitis, perforated viscus, diverticulitis, strangulated/incarcerated hernia, DKA, acute abdomen, mesenteric ischemia or other emergent conditions. Discussed with Dr. Jiang who agreed with the management and discharge plan. Diagnosis: Vaginal Bleeding Discharge medications: Tylenol Follow up with Dr. Antony and keep original appointment in 3 days. Instructed patient to return to the ED sooner for any worsening symptoms. Patient's questio ns were answered. Patient understood and agreed with discharge plan. Patient discharged stable. Departure Diagnosis: Primary Impression: Vaginal bleeding Condition: Stable Patient Instructions: After a Vaginal , Urinary Tract Infections in Women Referrals: COMMUNITY CLINICS YOU HAVE RECEIVED A MEDICAL SCREENING EXAM AND THE RESULTS INDICATE THAT YOU DO NOT HAVE A CONDITION THAT REQUIRES URGENT TREATMENT IN THE EMERGENCY DEPARTMENT. FURTHER EVALUATION AND TREATMENT OF YOUR CONDITION CAN WAIT UNTIL YOU ARE SEEN IN YOUR DOCTORS OFFICE WITHIN THE NEXT 1-2 DAYS. IT IS YOUR RESPONSIBILITY TO MAKE AN APPOINTMENT FOR FOLOW-UP CARE. IF YOU HAVE A PRIMARY DOCTOR --you should call your primary doctor and schedule an appointment IF YOU DO NOT HAVE A PRIMARY DOCTOR YOU CAN CALL OUR PHYSICIAN REFERRAL HOTLINE AT IF YOU CAN NOT AFFORD TO SEE A PHYSICIAN YOU CAN CHOSE FROM THE FOLLOWING [facility] CLINICS [facility] [address] [facility] [address] [facility] [address] [facility] [address] [facility] [address] [facility]. [address] [facility] YOU HAVE RECEIVED A MEDICAL SCREENING EXAM AND THE RESULTS INDICATE THAT YOU DO NOT HAVE A CONDITION THAT REQUIRES URGENT TREATMENT IN THE EMERGENCY DEPARTMENT. FURTHER EVALUATION AND TREATMENT OF YOUR CONDITION CAN WAIT UNTIL YOU ARE SEEN IN YOUR DOCTORS OFFICE WITHIN THE NEXT 1-2 DAYS. IT IS YOUR RESPONSIBILITY TO MAKE AN APPOINTMENT FOR FOLOW-UP CARE. IF YOU HAVE A PRIMARY DOCTOR --you should call your primary doctor and schedule and appointment IF YOU DO NOT HAVE A PRIMARY DOCTOR YOU CAN CALL OUR PHYSICIAN REFERRAL HOTLINE AT . IF YOU CAN NOT AFFORD TO SEE A PHYSICIAN YOU CAN CHOSE FROM THE FOLLOWING [facility] INSTITUTIONS: [facility] [address] [place] [address] [facility] [address] [place] [address] [facility] [address] [place] [address] [facility] Additional Instructions: Call your primary care doctor TOMORROW for an appointment during the next 2-3 days.See the doctor sooner or return here if your condition worsens before your appointment time. KAL BASS PA-C Aug 03, 2018 20:37
== END 2018-08-03 20:36 | disposition home or self-care (01) ==
LOC: FTE 14:47
DX: O72.1 Other immediate postpartum hemorrhage (principal); I10 Essential (primary) hypertension; Z79.01 Long term (current) use of anticoagulants
CPT/HCPCS: 36415; 76830; 76856; 80053; 81001; 81025; 85025